=== PATIENT | male | born 1945 | race Caucasian/White ===

== ENCOUNTER 2022-07-21 14:07 | Outpatient (REF) | payer BC, SELFPAY ==
[2022-07-21 14:46] LABS: Hematocrit 41.2 % (42.0-52.0); Hemoglobin 13.7 g/dl (14.0-18.0); Mean Corpuscular HGB Conc 33.3 g/dl (31.0-36.0); Mean Corpuscular Hemoglobin 28.4 pg (27.0-33.0); Mean Corpuscular Volume 85.5 fL (80.0-98.0); Mean Platelet Volume 9.2 fL (9.4-12.4); Platelet Count 344 X10*3/uL (160-400); Red Blood Count 4.82 X10*6/uL (4.60-5.80); Red Cell Distribution Width 13.6 % (11.0-16.0); White Blood Count 7.5 X10*3/uL (4.8-10.8)
[2022-07-21 14:58] LABS: Appearance Urine Turbid; Color Urine Yellow; Glucose Urine UA Negative (Negative); Leukocyte Esterase Urine Negative (Negative); Nitrite Urine Negative (Negative); PH 6.5 (5.0-9.0); Urine Blood Negative (Negative); Urine Ketones Negative (Negative); Urine Protein Negative (Neg-Trace)
[2022-07-21 15:07] LABS: Alanine Aminotransferase 20 U/L (0-40); Albumin Level 4.5 g/dL (3.5-5.0); Alkaline Phosphatase 73 U/L (39-117); Anion Gap 14 (12-20); Aspartate Amino Transferase 19 U/L (5-37); Bilirubin Direct 0.3 mg/dL (0.0-0.5); Bilirubin Total 0.9 mg/dL (0.0-1.0); Blood Urea Nitrogen 16 mg/dL (9-16); Calcium 9.9 mg/dL (8.4-10.2); Carbon Dioxide 27 mmol/L (22-29); Chloride 103 mmol/L (96-108); Cholesterol 194 mg/dL; Estimated Glomerular Filt Rate > 60; Glucose Random 89 mg/dL (60-115); HDL Cholesterol 52 mg/dL; LDL Cholesterol Calculated 130 mg/dl; Potassium 4.5 mmol/L (3.3-5.1); Sodium 139 mmol/L (135-145); Total Protein 6.6 g/dL (6.5-8.0); Triglycerides 61 mg/dL
[2022-07-21 15:29] LABS: Prostate Specific Antigen Scr 2.75 ng/mL (<0.05-4.0); Thyroid Stimulating Hormone 1.14 uIU/mL (0.32-4.0)
== END 2022-07-21 14:08 | disposition home or self-care (01) ==
LOC: HO.LAB 14:07
PROVIDERS: PCP Internal Medicine; Visit Provider Internal Medicine
DX: I10 Essential (primary) hypertension (principal); Z12.5 Encounter for screening for malignant neoplasm of prostate
CPT/HCPCS: 36415; 80048; 80061; 80076; 81003; 84153; 84443; 85027

== ENCOUNTER 2023-04-13 14:18 | Outpatient (AMB) | payer BC, SELFPAY ==
--- NOTE | 2023-04-13 14:25 | A.OFFPC_ITS ---
Vital Signs 04/13/23 14:27 Height 5 ft 10 in Weight 165 lb BMI 23.7 BP 130/80 Blood Pressure Location Lt brachial Position Sitting Pulse 68 Pulse Source Pulse Oximeter Pulse Oximetry (%) 95 Oxygen Delivery Method Room Air Intake Visit Reasons: 6mth f/u Intake Note: Patient is here to follow up on HTN. 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 Cadence Specialists: Not Required per policy Accompanied by: Self / Same As Patient Allergies No Known Allergies [NO KNOWN ALLERGIES] Allergy (Intermediate, Verified 04/13/23 15:15) UNKNOWN Medication List - Last Reconciled 04/13/23 by Kiran Lugo MD No Known Home Meds Tobacco use date assessed: 04/13/23 Fall risk assessment: No Falls in past year Last assessed Fall Risk: 04/13/23 Dental Screening Dental Screen Date: 04/13/23 Did you have a dental visit in the last 12 months?: Yes Did you have a dental problem in the last 6 months where you did not have access to dental care?: No Was dental information given to patient?: Patient has dentist HPI 6mth f/u HPI Details 77-year-old male presents to the office to discuss his chronic medical conditions. Patient would like to get blood work done. Currently he is on no medications. Able to function and do all activities of daily living. Patient drives at night. He is an avid biker and is able to bike the usual distances. [facility] Medical History Benign essential HTN Surgical History History of colonoscopy History of subdural hematoma Family History Father No problems noted. Mother No problems noted. Social History Housing: House Alcohol intake: current Alcohol intake frequency: a few times a week Alcohol type: wine Patient Tobacco Use Status: Never used Tobacco e-Cigarette/Vaping Use: Never Used Second Hand Smoke Exposure: No service: Yes Current occupational status: retired Cognitive needs: No Hearing needs: No Vision needs: Yes (Glasses) Questionnaire PHQ-9 Over the last 2 weeks, how often have you been bothered by any of the following problems? 1. Little interest or pleasure in doing things: not at all 2. Feeling down, depressed, or hopeless: not at all 3. Trouble falling or staying asleep, or sleeping too much: not at all 4. Feeling tired or having little energy: not at all 5. Poor appetite or overeating: not at all 6. Feeling bad about yourself - or that you are a failure or have let yourself or your family down: not at all 7. Trouble concentrating on things, such as reading the newspaper or watching television: not at all 8. Moving or speaking so slowly that other people could have noticed. Or the opposite - being so fidgety or restless that you have been moving around a lot more than usual: not at all 9. Thoughts that you would be better off or of hurting yourself in some way: not at all Total score: 0 Depression Screening Interpretation: Negative Source: Developed by Drs. Fredy Shi, Arlette Corbin, Carlitos Howard and colleagues, with an educational emery from [employer]. Thrive Questionnaire Date Thrive assessed: 04/13/23 I am a: Patient What is your living situation today?: I have a steady place to live Within the past 12 months, did the food you bought not last and you didn't have the money to get more?: Never true Within the past 12 months, did you worry whether your food would run out before you got money to buy more?: Never true Do you have trouble paying for medicines?: No Do you have trouble getting transportation to medical appointments?: No Do you have trouble paying your heating and electricity bill?: No Do you have trouble taking care of your child, family member or friend?: No Do you have trouble with day-to-day activities such as bathing, preparing meals, shopping, managing finances, etc.?: No Are you currently unemployed and looking for a job?: No Are you interested in more education?: No Currently or been in a relationship where the following occur: no concerns reported AUDIT C Alcohol Use Questionnaire (AUDIT-C) 1. How often do you have a drink containing alcohol?: 2-4 times a month 2. How many drinks containing alcohol do you have on a typical day when you are drinking?: 1 or 2 Total Score: 2 GINETTE-7 AMB Questionnaire GINETTE-7 Date GINETTE - 7 assessed: 04/13/23 Feeling nervous, anxious, or on edge: 0 = Not at all Not being able to stop or control worryin = Not at all Worrying too much about different things: 0 = Not at all Trouble relaxin = Not at all Being so restless that it is hard to sit still: 0 = Not at all Becoming easily annoyed or irritable: 0 = Not at all Feeling afraid as if something awful might happen: 0 = Not at all Total GINETTE-7 score (0-4 normal; 5-9 mild; 10-14 moderate; 15-21 severe): 0 Source: Developed by Drs. Fredy Shi, Arlette Corbin, Carlitos Howard and colleagues, with an educational emery from [employer]. Physical exam (Primary Care) Vital Signs: Last Vital Signs Pulse 68 04/13/23 14:27 BP 130/80 04/13/23 14:27 Pulse Ox 95 04/13/23 14:27 Oxygen Delivery Method Room Air 04/13/23 14:27 Care Plan Goal for BP management: Blood pressure is in range. No medications necessary. BMI result Body Mass Index 23.7 Tobacco/Smoking Status: Tobacco use Status Tobacco use date assessed 04/13/23 04/13/23 14:30 Patient Tobacco Use Status Never used Tobacco 04/13/23 14:30 e-Cigarette/Vaping Use Never Used 04/13/23 14:30 PHQ-9: PHQ-9 Score PHQ-9: Total score 0 04/13/23 14:30 Depression Screening Interpretation: Negative Thrive Assessment: Date of Thrive Assessment Date Thrive assessed 04/13/23 04/13/23 14:30 Currently or been in a relationship where the following occur: no concerns reported Const General: cooperative, healthy appearing and comfortable HENMT Head: Yes normal to inspection and Yes atraumatic Eyes General: appearance normal, both eyes and all related structures Neck Neck: Yes normal visual inspection and Yes full ROM Chest Chest palpation & inspection: normal inspection of the chest Resp Effort & Inspection: normal respiratory effort Auscultation: clear to auscultation bilaterally Cardio Jugular venous distension: no JVD Palpation: normal PMI Rate: regular rate Heart sounds: S1 normal heart sound present and S2 normal heart sound present GI Palpation (GI): Soft to palpation and No hepatosplenomegaly present Extrem General: Yes normal to inspection and Yes full ROM Assessment and Plan Assessment & Plan (1) Benign essential HTN: Code(s): I10 - Essential (primary) hypertension Plan: Blood work has been ordered. Counseling on the importance of diet and exercise done Orders: Orders Basic Metabolic Panel Today I10 - Essential (primary) hypertension Lipid Panel Today I10 - Essential (primary) hypertension Liver Panel Today I10 - Essential (primary) hypertension Thyroid Stimulating Hormone Today I10 - Essential (primary) hypertension Complete Blood Count no Diff Today I10 - Essential (primary) hypertension UA and rflx microscopic Today I10 - Essential (primary) hypertension Coding Level of Care Code Est Pt Level 4 (01407) Diagnoses Benign essential HTN I10
[2023-04-13 14:27] VITALS: BP 130/80; PULSE 68; O2SAT 95; BMI 23.7
== END 2023-04-13 15:18 | disposition home or self-care (01) ==
PROVIDERS: PCP Internal Medicine; Visit Provider Internal Medicine
DX: I10 Essential (primary) hypertension (principal)
CPT/HCPCS: 99214

== ENCOUNTER 2023-04-13 15:21 | Outpatient (REF) | payer BC, SELFPAY ==
[2023-04-13 18:21] LABS: Hematocrit 41.7 % (42.0-52.0); Hemoglobin 13.7 g/dl (14.0-18.0); Mean Corpuscular HGB Conc 32.9 g/dl (31.0-36.0); Mean Corpuscular Hemoglobin 28.2 pg (27.0-33.0); Mean Platelet Volume 9.7 fL (9.4-12.4); Platelet Count 311 X10*3/uL (160-400); Red Blood Count 4.85 X10*6/uL (4.60-5.80); Red Cell Distribution Width 13.4 % (11.0-16.0); White Blood Count 5.2 X10*3/uL (4.8-10.8)
[2023-04-13 18:43] LABS: Alanine Aminotransferase 17 U/L (0-40); Albumin Level 4.4 g/dL (3.5-5.0); Alkaline Phosphatase 61 U/L (39-117); Anion Gap 11 (12-20); Aspartate Amino Transferase 17 U/L (5-37); Bilirubin Direct 0.2 mg/dL (0.0-0.5); Bilirubin Total 0.9 mg/dL (0.0-1.0); Blood Urea Nitrogen 14 mg/dL (9-16); Calcium 9.4 mg/dL (8.4-10.2); Carbon Dioxide 26 mmol/L (22-29); Chloride 106 mmol/L (96-108); Cholesterol 222 mg/dL; Estimated Glomerular Filt Rate > 60; Glucose Random 98 mg/dL (60-115); HDL Cholesterol 45 mg/dL; LDL Cholesterol Calculated 163 mg/dl; Potassium 4.4 mmol/L (3.3-5.1); Sodium 139 mmol/L (135-145); Total Protein 6.8 g/dL (6.5-8.0); Triglycerides 73 mg/dL
[2023-04-13 18:58] LABS: Thyroid Stimulating Hormone 1.28 uIU/mL (0.32-4.0)
[2023-04-13 19:03] LABS: Appearance Urine Clear; Color Urine Yellow; Glucose Urine UA Negative (Negative); Leukocyte Esterase Urine Negative (Negative); Nitrite Urine Negative (Negative); Urine Blood Negative (Negative); Urine Ketones Negative (Negative); Urine Protein Negative (Neg-Trace)
== END 2023-04-13 15:22 | disposition home or self-care (01) ==
LOC: HO.LAB 15:21
PROVIDERS: PCP Internal Medicine; Visit Provider Internal Medicine
DX: I10 Essential (primary) hypertension (principal)
CPT/HCPCS: 36415; 80048; 80061; 80076; 81003; 84443; 85027

== ENCOUNTER 2023-05-25 13:44 | Emergency (ER) | payer BC, SELFPAY ==
--- NOTE | ~2023-05-25 | XR_ITS ---
EXAMINATION: XR CHEST CLINICAL INFORMATION: Chest pain. COMPARISON: 02/11/2020 chest radiograph. TECHNIQUE: 2 views of the chest were obtained. FINDINGS: No significant abnormality is noted involving the heart, lungs, mediastinum, bony thorax or soft tissues. XR/XR chest 2V IMPRESSION: Unremarkable examination.
[2023-05-25 13:47] VITALS: BP 171/69; PULSE 52; RESP 18; TEMP 36.6; O2SAT 98; BMI 24.5
--- NOTE | 2023-05-25 13:48 | ECG_ITS ---
Test Reason : PAIN Blood Pressure : / mmHG Vent. Rate : 087 BPM Atrial Rate : 087 BPM P-R Int : 144 ms QRS Dur : 062 ms QT Int : 350 ms P-R-T Axes : 028 061 077 degrees QTc Int : 421 ms Poor data quality, interpretation may be adversely affected Sinus rhythm with Premature supraventricular complexes Nonspecific ST and T wave abnormality Abnormal ECG No previous ECGs available Referred By: Jose Valles Electronically Signed By:DUDLEY BARKSDALE
--- NOTE | 2023-05-25 13:48 | ED_ITS ---
HPI - General Adult General Chief complaint: Upper Respiratory Symptoms Stated complaint: congestion chest pain Time Seen by Provider: 05/25/23 15:24 Source: patient, RN notes reviewed and old records reviewed Mode of arrival: ambulatory Limitations: no limitations History of Present Illness HPI narrative: 77-year-old male presents for evaluation of cough, congestion, sore throat. His symptoms started about 48 hours ago. Denies any known sick contacts. Denies any shortness of breath. He does not some mild chest discomfort with coughing Allergies he is vaccinated for COVID-19 Related Data Home Medications Medication Instructions Recorded Confirmed No Known Home Meds 09/11/20 04/13/23 Allergies Allergy/AdvReac Type Severity Reaction Status Date / Time No Known Allergies Allergy Intermediate UNKNOWN Verified 05/25/23 13:52 [NO KNOWN ALLERGIES] Review of Systems Constitutional: Constitutional: Reports chills, Reports fever(s), Reports headache(s) and Reports malaise ENT: Reports headache(s) and Reports sore throat Cardiovascular: Cardiovascular: Reports chest pain Respiratory: Respiratory: Denies chest congestion and Reports cough Gastrointestinal: Gastrointestinal: Denies abdominal pain, Denies nausea and Denies vomiting Musculoskeletal: Musculoskeletal: Denies back pain Neurologic: Reports headache(s) PMFSH Past Medical History Medical History Benign essential HTN Surgical History History of colonoscopy History of subdural hematoma Family History Family History Father No problems noted. Mother No problems noted. Social History Social History Housing: House Alcohol intake: current Alcohol intake frequency: a few times a week Alcohol type: wine Patient Tobacco Use Status: Never used Tobacco e-Cigarette/Vaping Use: Never Used Second Hand Smoke Exposure: No service: Yes Current occupational status: retired Cognitive needs: No Hearing needs: No Vision needs: Yes (Glasses) Physical Exam ED Vital Signs: Vital Signs - 24 hr 05/25/23 13:47 Temperature 98 F Pulse Rate 52 Respiratory Rate 18 Blood Pressure 171/69 H Pulse Oximetry 98 Oxygen Delivery Method Room Air BMI result Body Mass Index 24.5 Const General: healthy appearing, comfortable, no acute distress, alert and awake Nutritional Appearance: well nourished Orientation/consciousness: patient oriented x3 HENMT Head: Yes normocephalic and Yes atraumatic Eyes Eyelids: Yes eyelids normal Conjunctivae: conjunctivae normal Sclerae: sclerae normal Corneas: corneas normal Pupils: Equal, round and reactive pupils present EOM: EOMs intact bilaterally Neck Neck: Yes full ROM Resp Effort & Inspection: normal respiratory effort, able to speak in complete sentences, no audible wheezes and not labored Auscultation: clear to auscultation bilaterally Cardio Rate: regular rate Rhythm: regular rhythm Skin General skin exam: no rashes or lesions noted and elasticity normal Neuro General: patient oriented x3 Cranial nerves: Yes Equal, round and reactive pupils present and Yes Bilaterally intact EOM present Cognition (Neuro): normal cognition Extrem Other: Moving all extremities well without any obvious deformities Course Course Course Narrative: RME- 77-year-old male presents for evaluation of cough, congestion, some chest tightness. Plan for COVID testing, chest x-ray call EKG. Low suspicion for cardiac disease given the upper respiratory symptoms. Medical Decision Making Medical Decision Making [facility] Narrative: 37-year-old male presents for evaluation of upper respiratory symptoms. His which has resulted positive. He does not meet criteria for Paxlovid treatment. Symptomatic care only. Chest x-ray was clear, EKG does not show any acute ischemia Differential Diagnosis Differential Diagnoses: The differential diagnosis associated with the prese ntation includes Viral syndrome Upper respiratory infection COVID-19 Pneumonia Bronchitis ACS less likely Lab Data Labs: Lab Results 05/25/23 Range/Units 14:18 COVID-19 (OLGA) Positive A (Negative) COVID-19 Clin Com See Note Independent Interpretation I performed an independent interpretation of an: EKG (Sinus rhythm with a rate of 87 beats per minute. No ectopy) and Plain X-Ray (Clear chest x-ray) Radiology Impression Discussion of test interpretation with radiology: I have reviewed the radiologist's reading. (Unremarkable examination of the chest x-ray) Discharge Plan Discharge Clinical Impression: COVID-19 Patient Disposition: Home, Self-Care Instructions: COVID-19 (Coronavirus Disease 2019) (ED) Additional Instructions: You tested positive for COVID-19 Your chest x-ray was clear Your EKG did not show any concerning abnormalities Use ibuprofen/Tylenol for headaches, fevers You may use [id number] cough medicine Return for new or worsening symptoms, especially if you are having trouble breathing Follow-up with your primary doctor Prescriptions: No Action No Known Home Meds
[2023-05-25 14:38] LABS: COVID-19 Test Positive (Negative); IDNOW Serial# BCCEAD1C
== END 2023-05-25 15:37 | disposition home or self-care (01) ==
LOC: HO.ED 15:31
PROVIDERS: Physician Assistant; Emergency Provider Emergency Medicine; PCP Internal Medicine
DX: U07.1 COVID-19 (principal); R07.89 Other chest pain
CPT/HCPCS: 71046; 87635; 93005; 99283

== ENCOUNTER 2023-07-27 12:03 | Outpatient (AMB) | payer BC, SELFPAY ==
--- NOTE | 2023-07-27 12:05 | MHC.PC.OV ---
Vital Signs 07/27/23 12:06 Height 5 ft 8 in Weight 164 lb BMI 24.9 BP 132/72 Blood Pressure Location Lt brachial Position Sitting Pulse 44 L Pulse Source Pulse Oximeter Pulse Oximetry (%) 95 Oxygen Delivery Method Room Air Intake Visit Reasons: Annual Exam Intake Note: Patient is here today for a physical. 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: Not Required per policy Accompanied by: Self / Same As Patient Allergies No Known Allergies [NO KNOWN ALLERGIES] Allergy (Intermediate, Verified 07/27/23 12:31) UNKNOWN Medication List - Last Reconciled 07/27/23 by Kiran Lugo MD No Known Home Meds Tobacco use date assessed: 07/27/23 Fall risk assessment: No Falls in past year Last assessed Fall Risk: 07/27/23 Dental Screening Dental Screen Date: 07/27/23 Did you have a dental visit in the last 12 months?: Yes Did you have a dental problem in the last 6 months where you did not have access to dental care?: No Was dental information given to patient?: Patient has dentist HPI Annual Exam HPI Details 77-year-old male presents to the office requesting an annual physical. He is on no medications.. Last office visit, his LDL cholesterol was elevated and he was declining to take statins. Continues to decline the same. [facility] Medical History (Updated 07/27/23 @ 12:43 by Kiran Lugo MD) Benign essential HTN Surgical History History of colonoscopy History of subdural hematoma Family History Father No problems noted. Mother No problems noted. Social History Housing: House Alcohol intake: current Alcohol intake frequency: a few times a week Alcohol type: wine Patient Tobacco Use Status: Never used Tobacco e-Cigarette/Vaping Use: Never Used Second Hand Smoke Exposure: No service: Yes Current occupational status: retired Cognitive needs: No Hearing needs: No Vision needs: Yes (Glasses) Questionnaire Thrive Questionnaire Date Thrive assessed: 04/13/23 GINETTE-7 AMB Questionnaire GINETTE-7 Date GINETTE - 7 assessed: 04/13/23 Source: Developed by Drs. Fredy Shi, Arlette Corbin, Carlitos Howard and colleagues, with an educational emery from [employer]. Physical exam (Primary Care) Vital Signs: Last Vital Signs Pulse 44 L 07/27/23 12:06 BP 132/72 07/27/23 12:06 Pulse Ox 95 07/27/23 12:06 Oxygen Delivery Method Room Air 07/27/23 12:06 Care Plan Goal for BP management: Blood pressure is in range. Currently he is on no medications. BMI result Body Mass Index 24.9 Tobacco/Smoking Status: Tobacco use Status Tobacco use date assessed 07/27/23 07/27/23 12:08 Patient Tobacco Use Status Never used Tobacco 07/27/23 12:08 e-Cigarette/Vaping Use Never Used 07/27/23 12:08 Thrive Assessment: Date of Thrive Assessment Date Thrive assessed 04/13/23 07/27/23 12:08 Const General: cooperative and healthy appearing Nutritional Appearance: well nourished Orientation/consciousness: patient oriented x3 Limitations: no limitations HENMT Head: Yes normal to inspection Eyes General: appearance normal, both eyes and all related structures Neck Neck: Yes normal visual inspection Chest Chest palpation & inspection: normal palpation of entire chest wall Resp Effort & Inspection: normal respiratory effort Neuro General: patient oriented x3 Office Procedures Flu Questionnaire Does the patient have a severe egg allergy?: No Does the patient have severe life threatening allergies?: No Does the patient have a fever or illness today?: No Has the patient ever had Guillain-[place] Syndrome?: No Has the patient ever had any past reaction to a flu shot?: No Immunizations flu vacc [id number] 6mos up(PF) 60 mcg(15 mcgx4)/0.5 mL IM syringe Performing Provider: Kiran Lugo MD [facility] Administered by: Tavon Lee on 07/27/23 12:33 Dose Route Admin Location Dispensed Lot Number Expiration Date NDC Director Of Patient Safety 0.5 mL IM Left Deltoid 0.5 mL [id number] 03/31/24 [id number] [employer] VIS Given Date VIS Provided VIS Publication Date 07/27/23 Single Vaccine 21 Eligibility Eligibility Date Funding Source Not VFC Eligible 07/27/23 Private Assessment and Plan Assessment & Plan (1) Annual physical exam: Code(s): Z00.00 - Encounter for general adult medical examination without abnormal findings (2) Benign essential HTN: Code(s): I10 - Essential (primary) hypertension Plan: Blood pressure is in range. Currently he is on no medications. (3) Hypercholesterolemia: Code(s): E78.00 - Pure hypercholesterolemia, unspecified Plan: LDL is elevated. Patient still declines to take statins. He wants to get blood work checked in 3 months and will take statins if the numbers continue to be elevated. Orders: Orders Influenza [id number] Immunization Today Z23 - Encounter for immunization Coding Level of Care Code Est Pt Prev Care >65y(34110) Diagnoses Annual physical exam Z00.00 Benign essential HTN I10 Hypercholesterolemia E78.00
[2023-07-27 12:06] VITALS: BP 132/72; PULSE 44; O2SAT 95; BMI 24.9
== END 2023-07-27 12:35 | disposition home or self-care (01) ==
PROVIDERS: Visit Provider Internal Medicine
DX: Z00.00 Encounter for general adult medical examination without abnormal findings (principal); I10 Essential (primary) hypertension; E78.00 Pure hypercholesterolemia, unspecified; Z23 Encounter for immunization
CPT/HCPCS: 90471; 90686; 99397

== ENCOUNTER 2024-08-26 14:02 | Outpatient (AMB) | payer BC, SELFPAY ==
--- NOTE | 2024-08-26 14:03 | A.OFFPC_ITS ---
Vital Signs 08/26/24 14:05 Height 5 ft 8 in Weight 165 lb 4 oz BMI 25.1 BP 120/68 Blood Pressure Location Lt brachial Position Sitting Pulse 42 L Pulse Source Pulse Oximeter Pulse Oximetry (%) 100 Oxygen Delivery Method Room Air Intake Visit Reasons: ReschedulePE Intake Note: Patient is here today for a physical. Pt decline flu shot today. Outside Sales Representative Insurance Required: No Transportation Services Representative: Not Required per policy Accompanied by: Self / Same As Patient Allergies No Known Allergies [NO KNOWN ALLERGIES] Allergy (Intermediate, Verified 08/26/24 14:04) UNKNOWN Tobacco use date assessed: 08/26/24 Fall risk assessment: No Falls in past year Last assessed Fall Risk: 08/26/24 Dental Screening Dental Screen Date: 08/26/24 Did you have a dental visit in the last 12 months?: Yes Did you have a dental problem in the last 6 months where you did not have access to dental care?: No Was dental information given to patient?: Patient has dentist [facility] Medical History Benign essential HTN Surgical History History of colonoscopy History of subdural hematoma Family History Father No problems noted. Mother No problems noted. Social History Housing: House Alcohol intake: current Alcohol intake frequency: a few times a week Alcohol type: wine Patient Tobacco Use Status: Never used Tobacco e-Cigarette/Vaping Use: Never Used Second Hand Smoke Exposure: No service: Yes Current occupational status: retired Cognitive needs: No Hearing needs: No Vision needs: Yes (Glasses) Questionnaire PHQ-9 Over the last 2 weeks, how often have you been bothered by any of the following problems? 1. Little interest or pleasure in doing things: not at all 2. Feeling down, depressed, or hopeless: not at all 3. Trouble falling or staying asleep, or sleeping too much: not at all 4. Feeling tired or having little energy: not at all 5. Poor appetite or overeating: not at all 6. Feeling bad about yourself - or that you are a failure or have let yourself or your family down: not at all 7. Trouble concentrating on things, such as reading the newspaper or watching television: not at all 8. Moving or speaking so slowly that other people could have noticed. Or the opposite - being so fidgety or restless that you have been moving around a lot more than usual: not at all 9. Thoughts that you would be better off or of hurting yourself in some way: not at all Total score: 0 Depression Screening Interpretation: Negative Depression Screening Done: Yes Source: Developed by Drs. Fredy Shi, Arlette Corbin, Carlitos Howard and colleagues, with an educational emery from [employer]. Thrive Questionnaire Date Thrive assessed: 08/26/24 I am a: Patient What is your living situation today?: I have a steady place to live Within the past 12 months, did the food you bought not last and you didn't have the money to get more?: Never true Within the past 12 months, did you worry whether your food would run out before you got money to buy more?: Never true Do you have trouble paying for medicines?: No Do you have trouble getting transportation to medical appointments?: No Do you have trouble paying your heating and electricity bill?: No Do you have trouble taking care of your child, family member or friend?: No Do you have trouble with day-to-day activities such as bathing, preparing meals, shopping, managing finances, etc.?: No Are you currently unemployed and looking for a job?: No Are you interested in more education?: No Currently or been in a relationship where the following occur: No concerns reported THRIVE Score: 0 AUDIT C Alcohol Use Questionnaire (AUDIT-C) 1. How often do you have a drink containing alcohol?: 2-4 times a month 2. How many drinks containing alcohol do you have on a typical day when you are drinking?: 1 or 2 Total Score: 2 GINETTE-7 AMB Questionnaire GINETTE-7 Date GINETTE - 7 assessed: 08/26/24 Feeling nervous, anxious, or on edge: 0 = Not at all Not being able to stop or control worryin = Not at all Worrying too much about different things: 0 = Not at all Trouble relaxin = Not at all Being so restless that it is hard to sit still: 0 = Not at all Becoming easily annoyed or irritable: 0 = Not at all Feeling afraid as if something awful might happen: 0 = Not at all Total GINETTE-7 score (0-4 normal; 5-9 mild; 10-14 moderate; 15-21 severe): 0 Source: Developed by Drs. Fredy Shi, Arlette Corbin, Carlitos Howard and colleagues, with an educational emery from [employer]. Physical exam (Primary Care) Vital Signs: Last Vital Signs Pulse 42 L 08/26/24 14:05 BP 120/68 08/26/24 14:05 Pulse Ox 100 08/26/24 14:05 Oxygen Delivery Method Room Air 08/26/24 14:05 BMI result Body Mass Index 25.1 Tobacco/Smoking Status: Tobacco use Status Tobacco use date assessed 08/26/24 08/26/24 14:09 Patient Tobacco Use Status Never used Tobacco 08/26/24 14:09 e-Cigarette/Vaping Use Never Used 08/26/24 14:09 PHQ-9: PHQ-9 Score PHQ-9: Total score 0 08/26/24 14:09 Depression Screening Interpretation: Negative Thrive Assessment: Date of Thrive Assessment Date Thrive assessed 08/26/24 08/26/24 14:09 Currently or been in a relationship where the following occur: No concerns reported Const General: cooperative and healthy appearing Nutritional Appearance: well nourished Orientation/consciousness: patient oriented x3 Limitations: no limitations HENMT Head: Yes normal to inspection Eyes General: appearance normal, both eyes and all related structures Neck Neck: Yes normal visual inspection Chest Chest palpation & inspection: normal palpation of entire chest wall Resp Effort & Inspection: normal respiratory effort Neuro General: patient oriented x3 Coding Level of Care Code Est Pt Prev Care >65y(69745) Diagnoses Annual physical exam Z00.00 Assessment & Plan Assessment & Plan (1) Annual physical exam: Code(s): Z00.00 - Encounter for general adult medical examination without abnormal findings Category: Medical Plan: BW ordered. Will call with results. Scribe Plan - Not visible on output: History of Present Illness The patient is a 78-year-old male presenting for a routine physical examination. During the previous examination, the patient's cholesterol levels were reported to be elevated. He recalls receiving this information through correspondence. No specific interventions or changes in treatment have been implemented since then, and he expressed a preference for non-pharmacological management, contingent upon the current cholesterol levels not indicating further elevation. Social History - Previous employment as a mail distribution clerk. - Performs daily activities independently, including walking a dog. - Engages in occasional reading. - Drives including at night. - Prefers not to receive a flu shot due to past negative reactions. - Drinks black coffee without any additives. Review of Systems - Genitourinary: Reports frequent urination. - General: Denies any significant health concerns. - Musculoskeletal: Denies any aches and pains. - Sleep: Reports sleeping well. Physical Exam Results Plan - Hypercholesterolemia: A repeat lipid panel will be ordered to assess current cholesterol levels. If levels remain elevated, the possibility of pharmacologic intervention will be reconsidered should lifestyle modifications fail to provide adequate control. - Frequent urination: Continue with current behavioral adjustments to manage symptoms effectively. Further evaluation or treatment will be considered based on symptom progression or change. Patient was informed and verbally consented to the use of an ambient scribe for clinic note documentation during this visit. Discussion Notes I discussed with the patient the importance of monitoring his cholesterol levels and the potential implications of untreated hypercholesterolemia. We explored his past preference for managing this condition solely with lifestyle modifications, acknowledging that pharmacologic treatment might eventually become necessary. The patient was agreeable to repeat fasting blood work. We also reviewed his symptom of frequent urination, affirming that his current natasha gement strategy is effective. Follow-up will focus on further evaluation if symptoms worsen or new symptoms arise. I reiterated understanding his past reaction to the flu vaccine and his decision against receiving it. Patient Instructions - Undergo fasting blood tests as ordered. - Continue current management for frequent urination by limiting fluid intake before bedtime. - Maintain lifestyle measures aimed at managing cholesterol levels, including dietary modifications. - Contact the clinic if new symptoms arise or existing symptoms change.
[2024-08-26 14:05] VITALS: BP 120/68; PULSE 42; O2SAT 100; BMI 25.1
== END 2024-08-26 14:19 | disposition home or self-care (01) ==
PROVIDERS: PCP Internal Medicine; Visit Provider Internal Medicine
DX: Z00.00 Encounter for general adult medical examination without abnormal findings (principal)

== ENCOUNTER 2024-08-26 14:02 | Outpatient (REF) | payer BC, SELFPAY ==
[2024-08-26 16:10] LABS: Hemoglobin 14.3 g/dl (14.0-18.0); Mean Corpuscular HGB Conc 32.5 g/dl (31.0-36.0); Mean Corpuscular Hemoglobin 27.5 pg (27.0-33.0); Mean Corpuscular Volume 84.6 fL (80.0-98.0); Mean Platelet Volume 9.4 fL (9.4-12.4); Platelet Count 352 X10*3/uL (160-400); Red Cell Distribution Width 13.7 % (11.0-16.0); White Blood Count 6.2 X10*3/uL (4.8-10.8)
[2024-08-26 16:38] LABS: Appearance Urine Clear; Color Urine Dark Yellow; Glucose Urine UA Negative (Negative); Leukocyte Esterase Urine Negative (Negative); Nitrite Urine Negative (Negative); PH 5.5 (5.0-9.0); Specific Gravity - Urine 1.025 (1.005-1.025); Urine Blood Negative (Negative); Urine Ketones Negative (Negative); Urine Protein Trace mg/dL (Neg-Trace)
[2024-08-26 16:52] LABS: Alanine Aminotransferase 18 U/L (0-40); Albumin Level 4.3 g/dL (3.5-5.0); Alkaline Phosphatase 92 U/L (39-117); Anion Gap 10 (12-20); Aspartate Amino Transferase 22 U/L (5-37); Bilirubin Direct 0.2 mg/dL (0.0-0.5); Bilirubin Total 0.7 mg/dL (0.0-1.0); Blood Urea Nitrogen 16 mg/dL (9-16); Calcium 8.9 mg/dL (8.4-10.2); Carbon Dioxide 26 mmol/L (22-29); Chloride 106 mmol/L (96-108); Cholesterol 238 mg/dL (<200); Estimated Glomerular Filt Rate > 60; Glucose Random 112 mg/dL (60-115); HDL Cholesterol 43 mg/dL (>40); LDL Cholesterol Calculated 180 mg/dL (<100); Potassium 4.2 mmol/L (3.3-5.1); Sodium 138 mmol/L (135-145); Total Protein 6.8 g/dL (6.5-8.0); Triglycerides 79 mg/dL (<150)
[2024-08-26 16:59] LABS: Thyroid Stimulating Hormone 1.74 uIU/mL (0.32-4.0)
[2024-08-26 17:03] LABS: Prostate Specific Antigen Scr 33.17 ng/mL (<0.05-4.0)
== END 2024-08-26 14:03 | disposition home or self-care (01) ==
LOC: HO.LAB 14:02
PROVIDERS: PCP Internal Medicine; Visit Provider Internal Medicine
DX: Z00.00 Encounter for general adult medical examination without abnormal findings (principal); I10 Essential (primary) hypertension; Z12.5 Encounter for screening for malignant neoplasm of prostate
CPT/HCPCS: 36415; 80048; 80061; 80076; 81003; 84153; 84443; 85027

== ENCOUNTER 2024-10-03 11:09 | Outpatient (REF) | payer BC, SELFPAY ==
--- OUTSIDE RECORDS SUMMARY | 2024-10-03 12:57 | XMS_ITS | Continuity of Care Document ---
Author Organization [facility] ancer Care Address [address] [place] [id number] Care Team Providers Care Culinary Director Name Role Phone Nora RODRIGUEZ, Heather Whitt Primary Care Physician [phone] [facility]counter [facility] [id number] Date(s): 07/11/23 - 09/07/24 [facility] [address] [place] [id number] Discharge Disposition: A-D/C Home Attending Physician: Khalif Crane MD Admitting Physician: Khalif Crane MD Referring Physician: Heather Melendez MD Encounter Type: Disch Recurring OP Allergies, Adverse Reactions, Alerts No Known Medication Allergies Vital Signs Most recent to oldest [Reference Range]: 1 Height 175 cm (07/08/24 1:19 PM) Oxygen Saturation [94-100 %] 97 % (07/08/24 1:19 PM) Pulse Rate [55-90 bpm] 73 bpm (07/08/24 1:19 PM) Blood Pressure [90-138/55-84 mm Hg] 167/ 95mm Hg *H* (07/08/24 1:19 PM) Temperature [96.8-100.4 DegF] 97 DegF (07/08/24 1:19 PM) Mode of Delivery (Oxygen) Room air (07/08/24 1:19 PM) Blood pressure sites Arm, right (07/08/24 1:19 PM) Temperature Route Oral (07/08/24 1:19 PM) Dry Weight 75.5 kg (07/08/24 1:19 PM) Weight Obtained Via Standing scale (07/08/24 1:19 PM) Dry Weight Obtained Via Standing scale (07/08/24 1:19 PM) Social History Social History Type Response Smoking Status Former smoker entered on: 08/11/16 Sex Sex Representation Male (finding) Patient Care team information Care Team Personnel Name: Nora RODRIGUEZ, Heather Whitt Position: Reference Physician Member Role: PCP Address: [address], [address] [place] [address]- Telecom: Name: Khalif Crane MD Position: [facility] Physician - Oncology Med Service: Hematology & Oncology Member Role: Admitting Physician Address: [address] [place] [address] [place] [address]- Telecom: Care Team Related Persons Name: VICENTE VICENTE Insurance Providers Guarantor name: ELVIS VICENTE Health Plan Information #: 1 Payer: [employer] Member Number: [id number] Policy Number: NA Group Number: [id number] Health Plan Information #: 2 Payer: [employer] Member Number: [id number] Policy Number: NA Group Number: NA
[2024-10-03 13:48] LABS: PSA,Total (Free>4and<10) 53.24 ng/mL (0.00-4.00)
== END 2024-10-03 11:10 | disposition home or self-care (01) ==
LOC: HO.LAB 11:09
PROVIDERS: PCP Internal Medicine; Visit Provider Urology
DX: R97.20 Elevated prostate specific antigen [PSA] (principal); Z12.5 Encounter for screening for malignant neoplasm of prostate
CPT/HCPCS: 36415; 81003; 84153

== ENCOUNTER 2024-10-03 11:09 | Outpatient (AMB) | payer BC, SELFPAY ==
--- NOTE | 2024-10-02 20:12 | A.OFFVIS_ITS ---
Intake Visit Reasons: elevated PSA Intake Note: Patient is present for ELEVATED PSA Urology Medication:NONE Antibiotic Allergy:NONE Blood Thinner:NONE Farmworker Diversified Crops Required: No Allergies No Known Allergies [NO KNOWN ALLERGIES] Allergy (Intermediate, Verified 10/03/24 11:16) UNKNOWN Medication List - Last Reconciled 10/03/24 by Erickson Mcarthur MD atorvastatin 10 mg PO BEDTIME hyoscyamine sulfate 0.125 mg PO BID-QID PRN HPI Comments Details: Henri is a 79 year old male who presents for elevated PSA. I have discussed that elevated PSA may indicate changes in the prostate including benign enlargement, cancer and an inflammatory condition. I have discussed doing a biopsy has risks and that management in early detection of prostate cancer may include active surveillance. 08/26/24--PSA - 33.17. Reviewed previous PSA's --05/01/20--PSA 0.88, 07/21/22--2.75. Henri denies irritative voiding symptoms. Prostate exam-irregular; Urinalysis is negative. Discussed repeat PSA today. Discussed further evaluation with biopsy pending repeat PSA. [facility] Medical History Benign essential HTN Surgical History History of colonoscopy History of subdural hematoma Family History Father No problems noted. Mother No problems noted. Social History Housing: House Alcohol intake: current Alcohol intake frequency: a few times a week Alcohol type: wine Patient Tobacco Use Status: Never used Tobacco e-Cigarette/Vaping Use: Never Used Second Hand Smoke Exposure: No service: Yes Current occupational status: retired Cognitive needs: No Hearing needs: No Vision needs: Yes (Glasses) Review of Systems Const All systems reviewed & are unremarkable except as noted in HPI and below Reports no additional complaints Eyes Reports no additional complaints ENT Reports no additional complaints Card Reports no additional complaints Resp Reports no additional complaints GI Reports no additional complaints Reports as per HPI Musc Reports no additional complaints Skin/Breast Reports system reviewed and no additional complaints, except as documented Neuro Reports no additional complaints Psych Reports no additional complaints Endo Reports no additional complaints Miquel/Lymph Reports no additional complaints Aller/Immun Reports no additional complaints Physical Exam Const General: healthy appearing, no acute distress and well developed Orientation/consciousness: patient oriented x3 HEENT Head: Yes normocephalic Eyes Conjunctivae: conjunctivae normal Neck Neck: Yes normal visual inspection Chest Chest palpation & inspection: normal inspection of the chest Resp Effort & Inspection: normal respiratory effort Cardio Rate: regular rate GI Inspection: Yes normal to inspection Palpation (GI): Soft to palpation Other: Prostate Exam: enlarged, irregular Neuro General: patient oriented x3 Extrem General: No pedal edema Psych Appearance: grossly normal Affect: normal affect Results AMB Urinalysis, Automated UA Leukoctes 0 Deven/uL Last Edit by EMILEE Freeman on 10/03/24 11:30 UA Nitrite Negative Last Edit by EMILEE Freeman on 10/03/24 11:30 UA Urobilinogen 0.2 mg/dL Last Edit by EMILEE Freeman on 10/03/24 11:3 0 UA Protein 15 mg/dL Last Edit by Delma Trotter CCM on 10/03/24 11:30 UA pH 5.5 Last Edit by Delma Trotter CCM on 10/03/24 11:30 UA Blood 0 Robert/uL Last Edit by Delma Trotter CCM on 10/03/24 11:30 UA Specific [place] 1.025 Last Edit by EMILEE Freeman on 10/03/24 11: 30 UA Ketone Negative Last Edit by EMILEE Freeman on 10/03/24 11:30 UA Bilirubin 0 mg/dL Last Edit by Delma Trotter CCM on 10/03/24 11:30 UA Glucose 0 mg/dL Last Edit by Delma Trotter CCM on 10/03/24 11:30 Assessment & Plan Assessment & Plan (1) Elevated PSA: Code(s): R97.20 - Elevated prostate specific antigen [PSA] Category: Medical Plan Discussed repeat PSA today. Discussed further evaluation with biopsy pending repeat PSA. Orders: Orders AMB Urinalysis Automated Today Z13.9 - Encounter for screening, unspecified PSA,Total (Free>4and<10) Today R97.20 - Elevated prostate specific antigen [PSA] Patient Instructions: The patient had an opportunity to ask questions regarding treatment plan. The patient expressed understanding and agreement with the above treatment plan. The patient is aware they should contact our office by phone for worsening of their current condition or the appearance of new symptoms. Compliance is encouraged with any medications and followup testing that is ordered. It is a privilege to be allowed the opportunity to participate in the urologic care of your patient. If you have any questions or concerns regarding treatment for the above conditions please do not hesitate to contact me. The office telephone contact is [phone]. This note is constructed in part using voice recognition software. While every effort has been made to ensure accuracy chiropractic assistant errors may have been included. Yours sincerely, Erickson Mcarthur MD Coding Level of Care Code New Pt Level 4 (58948) Diagnoses Elevated PSA R97.20
== END 2024-10-03 11:46 | disposition home or self-care (01) ==
PROVIDERS: PCP Internal Medicine; Visit Provider Urology
DX: R97.20 Elevated prostate specific antigen [PSA] (principal); Z13.9 Encounter for screening, unspecified
CPT/HCPCS: 99204

== ENCOUNTER 2024-10-18 16:01 | Outpatient (AMB) | payer BC, SELFPAY ==
--- NOTE | 2024-10-18 11:33 | MHC.OFFVIS ---
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 10/03/24-53.24. Discussed prostate biopsy. Transrectal Ultrasound guided biopsy of the prostate. Discussed risks to include but not limited to pain, infection. Will schedule. 10/03/24--Henri is a 79 year old male who presents for elevated PSA. I have discussed that elevated PSA may indicate changes in the prostate including benign enlargement, cancer and an inflammatory condition. I have discussed doing a biopsy has risks and that management in early detection of prostate cancer may include active surveillance. 08/26/24--PSA - 33.17. Reviewed previous PSA's --05/01/20--PSA 0.88, 07/21/22--2.75. Henri denies irritative voiding symptoms. Prostate exam-irregular; Urinalysis is negative. Discussed repeat PSA today. Discussed further evaluation with biopsy pending repeat PSA. [facility] Medical History Benign essential HTN Surgical History History of colonoscopy History of subdural hematoma Family History Father No problems noted. Mother No problems noted. Social History Housing: House Alcohol intake: current Alcohol intake frequency: a few times a week Alcohol type: wine Patient Tobacco Use Status: Never used Tobacco e-Cigarette/Vaping Use: Never Used Second Hand Smoke Exposure: No service: Yes Current occupational status: retired Cognitive needs: No Hearing needs: No Vision needs: Yes (Glasses) Review of Systems Const All systems reviewed & are unremarkable except as noted in HPI and below Reports no additional complaints Eyes Reports no additional complaints ENT Reports no additional complaints Card Reports no additional complaints Resp Reports no additional complaints GI Reports no additional complaints Reports as per HPI Musc Reports no additional complaints Skin/Breast Reports system reviewed and no additional complaints, except as documented Neuro Reports no additional complaints Psych Reports no additional complaints Endo Reports no additional complaints Miquel/Lymph Reports no additional complaints Aller/Immun Reports no additional complaints Telehealth Telehealth Telehealth Platform: [employer] Location of provider rendering services: practice address Location of patient: address on file Patient Identification confirmed using: Name, : Yes Telehealth method: video Patient verbally consented to treatment: Yes Patient verbally consented to billing insurance company: Yes Patient informed of any privacy concerns related to visit: Yes Assessment & Plan Assessment & Plan (1) Elevated PSA: Code(s): R97.20 - Elevated prostate specific antigen [PSA] Category: Medical Plan Discussed further evaluation with prostate biopsy Medications: New ciprofloxacin HCl start cipro one day prior to prostate biopsy and continue until completion of tablets 500 mg PO BID 8 tabs 0RF prostate biopsy Patient Instructions: The patient had an opportunity to ask questions regarding treatment plan. The patient expressed understanding and agreement with the above treatment plan. The patient is aware they should contact our office by phone for worsening of their current condition or the appearance of new symptoms. Compliance is encouraged with any medications and followup testing that is ordered. It is a privilege to be allowed the opportunity to participate in the urologic care of your patient. If you have any questions or concerns regarding treatment for the above conditions please do not hesitate to contact me. The office telephone contact is [phone]. This note is constructed in part using voice recognition software. While every effort has been made to ensure accuracy cord maker errors may have been included. Yours sincerely, Erickson Mcarthur MD Coding Level of Care Code Tele Est Pt Level 4 (59935) Diagnoses Elevated PSA R97.20
== END 2024-10-18 16:23 | disposition home or self-care (01) ==
LOC: HO.HUSH 16:01
PROVIDERS: PCP Internal Medicine; Visit Provider Urology
DX: R97.20 Elevated prostate specific antigen [PSA] (principal)
CPT/HCPCS: 99214

== ENCOUNTER 2024-11-15 07:59 | Outpatient (REF) | payer BC, SELFPAY ==
--- NOTE | 2024-11-15 11:04 | P.OP_ITS ---
Operative Note Operative Note Date of Service: 11/15/24 Narrative: PreOperative Diagnosis:? ? Elevated PSA Post Operative Diagnosis:??Elevated PSA Procedure:?1. Transrectal ultrasound guided biopsy of the prostate 12 core 2. Transrectal ultrasound measurement of prostate 3. Transrectal ultrasound guided pudendal nerve block Surgeon:?Dr Erickson Mcarthur Anesthesia:? Local Indications for procedure: Elevated PSA, 10/03/24--53.24 ng/mL Procedure: Preoperative antibiotics confirmed. After informed consent was verified the patient was placed on the procedure table in left lateral position. Patient identity confirmed. Safety pause time-out performed. Digital rectal exam performed to dilate rectal sphincter, iodine mixed with lubricant jelly 30 cc placed per rectum. Ultrasound probe was placed per rectum. The prostate was visualized. Prostatic calcifications noted in the transitional zone. The prostate was measured width 4.62 cm, height 4.16 cm, length 4.81 cm with a volume of 48.4 mL. An ultrasound guided pudendal nerve block was performed using 10 cc of 1% lid ocaine. A 12 core biopsy was performed from the left base, left mid, left apex and right base, mid, apex 2 biopsies from each section. The ultrasound probe was removed and digital palpation of the prostate for 1-2 minutes for hemostasis was performed. The patient tolerated the procedure well. Complications: None
[2024-12-27] MEDS: Lidocaine HCl 1 % MPF 5 ML VIAL SUBCUT (13:49)
== END 2024-11-15 08:00 | disposition home or self-care (01) ==
LOC: HO.US 07:59
PROVIDERS: PCP Internal Medicine; Visit Provider Urology
DX: C61 Malignant neoplasm of prostate (principal)
CPT/HCPCS: 55700; 76942; 88305; J2003

== ENCOUNTER → 2024-11-15 07:59 | Outpatient (BNV) | payer BC, SELFPAY | PROVIDERS: PCP Internal Medicine; Visit Provider Urology | DX: R97.20 Elevated prostate specific antigen [PSA] (principal) | CPT/HCPCS: 55700; 76872; 76942 ==

== ENCOUNTER 2024-12-04 15:17 | Outpatient (AMB) | payer BC, SELFPAY ==
--- NOTE | 2024-12-04 13:01 | MHC.OFFVIS ---
Intake Visit Reasons: Prostate biopsy Intake Note: Patient is present for a prostate biopsy Urology Medication: None Antibiotic Allergies: None Blood Thinners: None Banquet Attendant Required: No Accompanied by: Self / Same As Patient Allergies No Known Allergies [NO KNOWN ALLERGIES] Allergy (Intermediate, Verified 12/04/24 15:22) UNKNOWN HPI Comments Details: 12/04/24-- History of Present Illness The patient is a 79-year-old male presenting for follow-up related to recent identification of prostate adenocarcinoma. This diagnosis resulted from a prostate biopsy conducted on November 15, 2024, which revealed a Brookline score of 10 (5+5), suggestive of an advanced prostate cancer/neoplasm. His PSA was notably elevated at 33.17 ng/mL in August 2024. The patient's oncological history includes previous radiation treatment for lymphoma over a decade ago, with the last follow-up pending prior to discharge from his radiation oncologist. Despite the prostate cancer diagnosis, there has been no significant symptomatology related directly to urinary disturbances or pain originating from the urogenital tract. Urinary Symptoms Review - No urinary symptoms or incontinence reported during this visit Results - Tests and Diagnostics: Prostate biopsy results showing adenocarcinoma with Marilin score 10 (5+5) - Labs: PSA level was 33.17 ng/mL as of August 26, 2024 Plan For the patient's high-grade prostate adenocarcinoma, I will proceed with initiating hormonal therapy to lower testosterone levels. This will involve monthly injections once approved by his insurance. A PET scan will be scheduled to identify any metastasis originating from the primary tumor location. Engagement with the patient's existing oncology team at [facility] is prudent, and all requisite medical records will be directed to Dr. Capellan for coordinated care. Concurrently, a prophylactic prescription for oral calcium and vitamin D is provided to counteract the side effects of hormonal therapy. I will review PSA levels and evaluate responses after the initiation of hormonal therapy. Patient was informed and verbally consented to the use of an ambient scribe for clinic note documentation during this visit. Discussion Notes During the visit, I explained the seriousness of the patient's adenocarcinoma with a Brookline score of 10 and the availability of hormone therapy as an effective initial treatment to limit disease progression. I detailed potential side effects, including bone density loss, and recommended calcium and vitamin D supplementation. I also discussed the importance of a PET scan for comprehensive staging and evaluation. The role of radiation in his prior lymphoma management was acknowledged, and I counseled continuation under his current oncologist, Dr. Capellan, considering the patient's upcoming discharge plan. I confirmed that all necessary medical documentation would be relayed to Dr. Capellan. We concluded with a consensus to reassess treatment after initial hormone therapy and imaging results. Patient Instructions - Begin taking calcium with vitamin D as recommended. - Schedule and complete PET scan as instructed. - Follow up for hormone therapy injection once approved by insurance. - Continue care coordination with Dr. Crane at [facility]. - Monitor any side effects of treatment and report them promptly. - Return for follow-up upon completion of initial hormonal therapy and PET scan. 10/18/24--FU repeat PSA. 10/03/24-53.24. Discussed prostate biopsy. Transrectal Ultrasound guided biopsy of the prostate. Discussed risks to include but not limited to pain, infection. Will schedule. 10/03/24--Henri is a 79 year old male who presents for elevated PSA. I have discussed that elevated PSA may indicate changes in the prostate including benign enlargement, cancer and an inflammatory condition. I have discussed doing a biopsy has risks and that management in early detection of prostate cancer may include active surveillance. 08/26/24--PSA - 33.17. Reviewed previous PSA's --05/01/20--PSA 0.88, 07/21/22--2.75. Henri denies irritative voiding symptoms. Prostate exam-irregular; Urinalysis is negative. Discussed repeat PSA today. Discussed further evaluation with biopsy pending repeat PSA. PFSH Medical History Benign essential HTN Surgical History History of colonoscopy History of subdural hematoma Family History Father No problems noted. Mother No problems noted. Social History Housing: House Alcohol intake: current Alcohol intake frequency: a few times a week Alcohol type: wine Patient Tobacco Use Status: Never used Tobacco e-Cigarette/Vaping Use: Never Used Second Hand Smoke Exposure: No service: Yes Current occupational status: retired Cognitive needs: No Hearing needs: No Vision needs: Yes (Glasses) Review of Systems Const All systems reviewed & are unremarkable except as noted in HPI and below Reports no additional complaints Eyes Reports no additional complaints ENT Reports no additional complaints Card Reports no additional complaints Resp Reports no additional complaints GI Reports no additional complaints Reports as per HPI Musc Reports no additional complaints Skin/Breast Reports system reviewed and no additional complaints, except as documented Neuro Reports no additional complaints Psych Reports no additional complaints Endo Reports no additional complaints Miquel/Lymph Reports no additional complaints Aller/Immun Reports no additional complaints Results AMB Urinalysis, Automated UA Leukoctes 0 Deven/uL Last Edit by Jayde Fine on 12/04/24 16:16 UA Nitrite Negative Last Edit by Jayde Fine on 12/04/24 16:16 UA Urobilinogen 3.5 mg/dL Last Edit by Jayde Fine on 12/04/24 16:16 UA Protein 1 mg/dL Last Edit by Jayde Fine on 12/04/24 16:16 UA pH 7.0 Last Edit by Jayde Fine on 12/04/24 16:16 UA Blood 0 Robert/uL Last Edit by Jayde Fine on 12/04/24 16:16 UA Specific [place] 1.010 Last Edit by Jayde Fine on 12/04/24 16:16 UA Ketone Negative Last Edit by Jayde Fine on 12/04/24 16:16 UA Bilirubin 0 mg/dL Last Edit by Jayde Fine on 12/04/24 16:16 UA Glucose 0 mg/dL Last Edit by Jayde Fine on 12/04/24 16:16 Results Reviewed Results Reviewed: Collected: 11/15/24 Location: [facility] Received: 11/15/24 Diagnosis A. Prostate, left base lateral, core biopsy: Prostatic adenocarcinoma, Marilin score 5+4=9 (Grade group 5), involving 6% of the length of the core. B. Prostate, left base medial, core biopsy: Benign prostatic tissue. C. Prostate, left mid lateral, core biopsy: Prostatic adenocarcinoma, Brookline score 5+4=9 (Grade group 5), involving 53% of the length of the core. D. Prostate, left mid medial, core biopsy: Prostatic adenocarcinoma, Brookline score 5+4=9 (Grade group 5), involving 8% of the length of the core. E. Prostate, left apex lateral, core biopsy: Benign prostatic tissue. F. Prostate, left apex medial, core biopsy: Benign prostatic tissue. G. Prostate, right base lateral, core biopsy: Prostatic adenocarcinoma, Marilin score 5+5=10 (Grade group 5), involving 75% of the length of the core with perineural invasion. H. Prostate, right base medial, core biopsy: Prostatic adenocarcinoma, Brookline score 5+5=10 (Grade group 5), involving 90% of the length of the core with perineural invasion. I. Prostate, right mid lateral, core biopsy: Prostatic adenocarcinoma, Marilin score 5+5=10 (Grade group 5), involving 95% of the length of the core with perineural invasion. J. Prostate, right mid medial, core biopsy: Prostatic adenocarcinoma, Marilin score 5+5=10 (Grade group 5), involving 85% of the length of the core with perineural invasion. K. Prostate, right apex lateral, core biopsy: Prostatic adenocarcinoma, Marilin score 5+5=10 (Grade group 5), involving 25% of the length of the core with perineural invasion and extraprostatic extension. L. Prostate, right apex medial, core biopsy: Prostatic adenocarcinoma, Brookline score 5+5=10 (Grade group 5), involving 20% of the length of the core. Data synopsis - Prostate needle biopsy Histologic type: Acinar adenocarcinoma Histologic grade: Marilin score: 5+4=9 (A, C,D); 5+5=10 (G-L) % of pattern 4: 60% (A); 25%(C,D) % of pattern 5: 40%(A); 75%(C,D); 100% (G-L) Grade group: 5 (A, C, D, G-L) Tumor quantitation: Number cores positive: 9 Total number of cores: 12 % of tissue involved: See above for details Periprostatic fat inv.: Present Seminal vesicle inv.: Not identified Perineural inv.: Present LVI: Not identified Patient: Henri Wilkins Age/Sex: 79/M MR#: [id number] Page 1 of 4 Surgical Pathology [id number] Clinical History Elevated PSA Microscopic Description A, C, D, G-L. Sections of the prostate needle cores demonstrates prostatic parenchyma variably involved by prostatic adenocarcinoma comprised of sheets, nests and cords of cells with scattered clear vacuoles and only vague attempt at luminal formation. These features are consistent with a Marilin pattern 5. Focal Brookline pattern 4 is identified as well. Extensive perineural invasion is identified. Extraprostatic extension is identified in the right apex lateral (part K). B, E, F. sections of the prostate needle cores demonstrates benign prostatic glands and stroma. There is no evidence of malignancy seen. Material Received A: Left base lateral B: Left base medial C: Left mid lateral D: Left mid medial E: Left apex lateral F: Left apex medial G: Right base lateral H: Right base medial I: Right mid lateral J: Right mid medial K: Right apex lateral L: Right apex medial Gross Description Received in 12 parts. A. Received in formalin labeled ?left base lateral? is a cylindrical portion of white soft tissue measuring 2.2 cm in length with a diameter of 0.025 cm which is entirely submitted for microscopic examination, 1 piece in cassette A. B. Received in formalin labeled ?left base medial? is a cylindrical portion of white soft tissue Assessment & Plan Assessment & Plan (1) Adenocarcinoma of prostate with Marilin score X: Code(s): C61 - Malignant neoplasm of prostate Category: Medical Orders: Orders PET CT fusion skull to thigh Today C61 - Malignant neoplasm of prostate AMB Urinalysis Automated Today Z13.9 - Encounter for screening, unspecified Coding Diagnoses Adenocarcinoma of prostate with Brookline score X C61
== END 2024-12-04 16:07 | disposition home or self-care (01) ==
PROVIDERS: PCP Internal Medicine; Visit Provider Urology
DX: Z13.9 Encounter for screening, unspecified (principal)

== ENCOUNTER → 2024-12-04 15:17 | Outpatient (BNVA) | payer BC, SELFPAY | PROVIDERS: PCP Internal Medicine; Visit Provider Urology | DX: C61 Malignant neoplasm of prostate (principal) | CPT/HCPCS: 81003 ==

== ENCOUNTER 2025-02-06 15:25 | Outpatient (AMB) | payer BC, SELFPAY ==
--- NOTE | 2025-02-06 15:46 | A.OFFVIS_ITS ---
Intake Visit Reasons: 8w/PET/PSA Intake Note: Patient is present for a 8 week follow up/PET/PSA Urology Medication: None Antibiotic Allergies: None Blood Thinners: None Security Incident Response Specialist Required: No Accompanied by: Self / Same As Patient Allergies No Known Allergies [NO KNOWN ALLERGIES] Allergy (Intermediate, Verified 02/06/25 15:49) UNKNOWN HPI Comments Details: 02/06/25-- 12/04/24--79-year-old male presenting for follow-up post prostate biopsy. The diagnosis prostate adenocarcinoma resulted from a prostate biopsy conducted on November 15, 2024, which revealed a Marilin score of 10 (5+5), suggestive of an advanced prostate cancer/neoplasm. His PSA was notably elevated at 33.17 ng/mL in August 2024. The patient's oncological history includes previous radiation treatment for lymphoma over a decade ago. Despite the prostate cancer diagnosis, there has been no significant symptomatology related directly to urinary disturbances or pain originating from the urogenital tract. Urinary Symptoms Review - No urinary symptoms or incontinence reported during this visit Results - Tests and Diagnostics: Prostate biopsy results showing adenocarcinoma with Marilin score 10 (5+5) - Labs: PSA level was 33.17 ng/mL as of August 26, 2024 10/18/24--FU repeat PSA. 10/03/24-53.24. Discussed prostate biopsy. Transrectal Ultrasound guided biopsy of the prostate. Discussed risks to include but not limited to pain, infection. Will schedule. 10/03/24--Henri is a 79 year old male who presents for elevated PSA. I have discussed that elevated PSA may indicate changes in the prostate including benign enlargement, cancer and an inflammatory condition. I have discussed doing a biopsy has risks and that management in early detection of prostate cancer may include active surveillance. 08/26/24--PSA - 33.17. Reviewed previous PSA's --05/01/20--PSA 0.88, 07/21/22--2.75. Henri denies irritative voiding symptoms. Prostate exam-irregular; Urinalysis is negative. Discussed repeat PSA today. Discussed further evaluation with biopsy pending repeat PSA. ON LICENSE OF [facility] Medical History Benign essential HTN Surgical History History of colonoscopy History of subdural hematoma Family History Father No problems noted. Mother No problems noted. Social History Housing: House Alcohol intake: current Alcohol intake frequency: a few times a week Alcohol type: wine Patient Tobacco Use Status: Never used Tobacco e-Cigarette/Vaping Use: Never Used Second Hand Smoke Exposure: No service: Yes Current occupational status: retired Cognitive needs: No Hearing needs: No Vision needs: Yes (Glasses) Results AMB Urinalysis, Automated UA Leukoctes 0 Deven/uL Last Edit by Jayde Fine on 02/06/25 16:53 UA Nitrite Negative Last Edit by Jayde Fine on 02/06/25 16:53 UA Urobilinogen 0.2 mg/dL Last Edit by Jayde Fine on 02/06/25 16:53 UA Protein 15 mg/dL Last Edit by Jayde Fine on 02/06/25 16:53 UA pH 6.0 Last Edit by Jayde Fine on 02/06/25 16:53 UA Blood 0 Robert/uL Last Edit by Jayde Fine on 02/06/25 16:53 UA Specific [place] 1.020 Last Edit by Jayde Fine on 02/06/25 16:53 UA Ketone Negative Last Edit by Jayde Fine on 02/06/25 16:53 UA Bilirubin 0 mg/dL Last Edit by Jayde Fine on 02/06/25 16:53 UA Glucose 0 mg/dL Last Edit by Jayde Fine on 02/06/25 16:53 Assessment & Plan Assessment & Plan Orders: Orders AMB Urinalysis Automated Today Z13.9 - Encounter for screening, unspecified Medications: New bicalutamide (Casodex) pt to take one tab twice daily 50 mg PO DAILY 90 tabs 1RF Coding
--- OUTSIDE RECORDS SUMMARY | 2025-02-06 16:01 | XMS_ITS | Clinical Summary ---
Author Organization [facility] Address [address] [place] [address] Phone Care Team Providers Care Company Manager Name Role Phone Unavailable Primary Care Provider Unavailabl e Encounters Date Type Department Care Team Description 01/17/2025 1:47 PM EDT - 01/17/2025 11:59 PM EDT Hospital Encounter [facility] PET Scan [address] [place] [address] Malignant neoplasm of prostate (CMS/HCC V24, CMS/HCC V28) Discharge Disposition: Home or Self Care from Last 3 Months Social History Tobacco Use Types Packs/Day Years Used Date Smoking Tobacco: Never Assessed Sex and Gender Information Value Date Recorded Sex Assigned at Not on file Legal Sex Male 6:29 AM EST Gender Identity Not on file Sexual Orientation Not on file Plan of Treatment Health Maintenance Due Date Last Done Comments Pneumococcal Vaccine: 50+ Years (1 of 2 - PCV) 1964 Zoster Vaccines (1 of 2) 1964 COVID-19 Vaccine (3 - Modern a risk series) 08/13/2021 07/16/2021, 06/08/2021 RSV Immunization Adult Patients (1 - 1-dose 75+ series) 2022 Cholesterol Screening (Lipid Panel) 01/16/2025 Depression Screening 01/16/2025 Falls Risk Assessment 01/16/2025 Hepatitis C Screening 01/16/2025 Social Influencers of Health Screening 01/16/2025 Influenza Vaccine (Season Ended) 2025 07/27/2023 DTaP,Tdap,and Td Vaccines (2 - Td or Tdap) 09/08/2030 09/08/2020 HIB Vaccines Aged Out No longer eligi ble based on patient's age to complete this topic HPV Vaccines Aged Out No longer eligi ble based on patient's age to complete this topic Hepatitis A Vaccines Aged Out No long er eligible based on patient's age to complete this topic Hepatitis B Vaccines Aged Out No long er eligible based on patient's age to complete this topic IPV Vaccines Aged Out No longer eligi ble based on patient's age to complete this topic MMR Vaccines Aged Out No longer eligi ble based on patient's age to complete this topic Meningococcal ACWY Vaccine Aged Out N o longer eligible based on patient's age to complete this topic Meningococcal B Vaccine Aged Out No l onger eligible based on patient's age to complete this topic RSV Immunization Patients Under 20 months Aged Out No longer eligible b ased on patient's age to complete this topic Varicella Vaccines Aged Out No longer eligible based on patient's age to complete this topic Procedures Procedure Name Priority Date/Time Associated Diagnosis Comments PET CT SKULL TO MID THIGH INITIAL Routine 01/17/2025 3:50 PM EDT Malignant neoplasm of prostate ([facility] V24, [facility] V28) from Last 3 Months Results * PET CT Skull to Mid Thigh Initial (01/17/2025 3:50 PM EDT) Anatomical Region Laterality Modality Body Radiographic Marcy ging 01/27/2025 5:18 AM EDT Impressions 01/27/2025 5:52 AM EDT 1. ??Activity within the prostate gland in keeping with biopsy-proven prostate carcinoma 2. ??Innumerable metabolically active osseous lesions in keeping with metastatic disease 3. ??Activity within abdominal and pelvic lymph nodes suspicious for metastatic disease 4. ??Nonspecific pulmonary nodules in the right lower lobe demonstrating mild activity -------- FINAL REPORT -------- Dictated By: Brynn Florez Dictated Date: 01/27/2025 05:18 ET Assigned Physician: Brynn Florez Reviewed and Electronically Signed By: Brynn Florez Signed Date: 01/27/2025 05:52 ET Workstation ID: [id number] Transcribed By: Self Edit Transcribed Date: 01/27/2025 05:18 ET Narrative 01/27/2025 5:52 AM EDT HISTORY: Prostate carcinoma, initial staging. ??History of lymphoma. PRIOR IMAGING STUDIES: Prior chest CT April 2015 RADIOPHARMACEUTICAL: 9.8 mCi F-18 piflufolastat IV INJECTION SITE: Left antecubital INJECTION TIME TO SCAN TIME: 69 min PROCEDURE: Routine body PET-CT imaging performed from the head to the upper thighs and reconstructed in axial, coronal, sagittal planes at the computer workstation with fused data from both the PET imaging study and attenuation correction CT study. Please note, CT imaging utilized strictly for attenuation correction and anatomic localization: CT not designed to produce and cannot replace kudmb-nk-byz-art true diagnostic CT examination with specific protocols. ??Standardized uptake values (SUV) normalized to patient body weight and indicate the highest active concentration (SUV max) in a given disease site. DLP: ??471 mGy-cm IMAGING FINDINGS: Reference Values SUV Max: Parotid: 10.3 Blood Pool: ??1.5 Liver: ??5.6 Expected pattern of physiological activity noted. HEAD AND NECK: No abnormal activity. ??Nonenlarged left supraclavicular lymph nodes SUV max 1.3. THORAX: Nonspecific left hilar activity SUV max 2.9. ??Nonspecific left infrahilar activity SUV max 4.2. 6 mm pulmonary nodule in the right lower lobe laterally SUV max 2 and 7 mm pulmonary nodule in the right lower lobe medially SUV max 0.7. ABDOMEN/PELVIS: Activity within the prostate gland SUV max 6.4. Distal left para-aortic lymph node SUV max 3.5. ??Asymmetric nonenlarged right obturator lymph node SUV max 2.5. ??Nonspecific left inguinal lymph nodes SUV max 2.2. MUSCULOSKELETAL: Innumerable metabolically active osseous lesions. ??For example, right ischial tuberosity SUV max 10.4, left symphysis pubis SUV Max 12.7, right posterior acetabulum 8.9, left sacroiliac SUV Max 8.2, right sacroiliac SUV Max 11.7, right sacrum SUV max 14.1, L5 SUV max 16.5, L4 SUV max 13.8, cervical spine SUV max 8.6, thoracic spine SUV Max 11.9. sternum SUV Max 4.3 and ribs SUV max 8.3. Procedure Note Brynn Florez MD - 01/27/2025 HISTORY: Prostate carcinoma, initial staging. History of lymphoma. PRIOR IMAGING STUDIES: Prior chest CT April 2015 RADIOPHARMACEUTICAL: 9.8 mCi F-18 piflufolastat IV INJECTION SITE: Left antecubital INJECTION TIME TO SCAN TIME: 69 min PROCEDURE: Routine body PET-CT imaging performed from the head to the upper thighsand reconstructed in axial, coronal, sagittal planes at the computerworkstation with fused data from both the PET imaging study andattenuation correction CT study. Please note, CT imaging utilized strictlyfor attenuation correction and anatomic localization: CT not designed toproduce and cannot replace ayype-fa-rsa-art true diagnostic CT examinationwith specific protocols. Standardized uptake values (SUV) normalized topatient body weight and indicate the highest active concentration (SUVmax) in a given disease site. DLP: 471 mGy-cm IMAGING FINDINGS: Reference Values SUV Max: Parotid: 10.3 Blood Pool: 1.5 Liver: 5.6 Expected pattern of physiological activity noted. HEAD AND NECK: No abnormal activity. Nonenlarged left supraclavicularlymph nodes SUV max 1.3. THORAX: Nonspecific left hilar activity SUV max 2.9. Nonspecific leftinfrahilar activity SUV max 4.2. 6 mm pulmonary nodule in the right lower lobe laterally SUV max 2 and 7 mmpulmonary nodule in the right lower lobe medially SUV max 0.7. ABDOMEN/PELVIS: Activity within the prostate gland SUV max 6.4. Distal left para-aortic lymph node SUV max 3.5. Asymmetric nonenlargedright obturator lymph node SUV max 2.5. Nonspecific left inguinal lymphnodes SUV max 2.2. MUSCULOSKELETAL: Innumerable metabolically active osseous lesions. Forexample, right ischial tuberosity SUV max 10.4, left symphysis pubis SUVMax 12.7, right posterior acetabulum 8.9, left sacroiliac SUV Max 8.2,right sacroiliac SUV Max 11.7, right sacrum SUV max 14.1, L5 SUV max 16.5,L4 SUV max 13.8, cervical spine SUV max 8.6, thoracic spine SUV Max 11.9.sternum SUV Max 4.3 and ribs SUV max 8.3. IMPRESSION: 1. Activity within the prostate gland in keeping with biopsy-provenprostate carcinoma 2. Innumerable metabolically active osseous lesions in keeping withmetastatic disease 3. Activity within abdominal and pelvic lymph nodes suspicious formetastatic disease 4. Nonspecific pulmonary nodules in the right lower lobe demonstratingmild activity -------- FINAL REPORT -------- Dictated By: Brynn Florez Dictated Date: 01/27/2025 05:18 ET Assigned Physician: Brynn Florez Reviewed and Electronically Signed By: Brynn Florez Signed Date: 01/27/2025 05:52 ET Workstation ID: [id number] Transcribed By: Self Edit Transcribed Date: 01/27/2025 05:18 ET Erickson Mcarthur MD IMG NM PROCEDURES Final Result from Last 3 Months Insurance MEDICARE [facility]
--- OUTSIDE RECORDS SUMMARY | 2025-02-06 16:01 | XMS_ITS | Continuity of Care Document ---
Author Organization [facility] Address [address] [place] [id number] Care Team Providers Care Pickling Grader Name Role Phone Heather Melendez MD Primary Care Physician Encounter [facility] Date(s): 01/01/25 - 01/31/25 [facility] [address] [place] [id number] Attending Physician: Fanny Clay Admitting Physician: Fanny Clay Referring Physician: Fanny Clay Encounter Type: Triage Allergies, Adverse Reactions, Alerts No Known Medication Allergies Social History Social History Type Response Smoking Status Former smoker entered on: 08/11/16 Sex Sex Representation Male (finding) Patient Care team information Care Team Personnel Name: Heather Melendez MD Position: Reference Physician Member Role: PCP Address: [address] [place] [address], [facility] [address] [place], [place] [address] Telecom: Care Team Related Persons Name: VICENTE VICENTE Insurance Providers Guarantor name: ELVIS PAULKRISTA Health Plan Information #: 1 Payer: [employer] Member Number: NA Policy Number: NA Group Number: NA
== END 2025-02-06 16:29 | disposition home or self-care (01) ==
LOC: HO.HUSH 15:26
PROVIDERS: PCP Internal Medicine; Visit Provider Urology
DX: Z13.9 Encounter for screening, unspecified (principal)

== ENCOUNTER → 2025-02-06 15:25 | Outpatient (BNVA) | payer BC, SELFPAY | PROVIDERS: PCP Internal Medicine; Visit Provider Urology | DX: C61 Malignant neoplasm of prostate (principal) | CPT/HCPCS: 81003 ==

== ENCOUNTER 2025-02-27 14:08 | Outpatient (AMB) | payer BC, SELFPAY ==
--- OUTSIDE RECORDS SUMMARY | 2025-02-27 14:20 | XMS_ITS | Clinical Summary ---
Author Organization [facility] Address [address] [place] [address] Phone Care Team Providers Care Superintendent Overhead Distribution Name Role Phone Unavailable Primary Care Provider Unavailabl e Encounters Date Type Department Care Team Description 01/17/2025 1:47 PM EDT - 01/17/2025 11:59 PM EDT Hospital Encounter [facility] PET Scan [address] [place] [address] Malignant neoplasm of prostate (CMS/HCC [...] 3:50 PM EDT Malignant neoplasm of prostate ([facility] V24, [facility] V28) from Last 3 Months Results * [...] Signed Date: 01/27/2025 05:52 ET Workstation ID: [id number] Transcribed By: Self Edit Transcribed Date: 01/27/2025 [...] not designed to produce and cannot replace ueqnv-xy-ady-art true diagnostic CT examination with specific protocols. [...] CT not designed toproduce and cannot replace mrmcn-do-xrm-art true diagnostic CT examinationwith specific protocols. Standardized [...] Signed Date: 01/27/2025 05:52 ET Workstation ID: [id number] Transcribed By: Self Edit Transcribed Date: 01/27/2025 05:18 ET Erickson Mcarthur MD IMG NM PROCEDURES Final Result from Last 3 Months Insurance MEDICARE [facility]
--- NOTE | 2025-02-27 14:25 | A.OFFPC_ITS ---
Vital Signs 02/27/25 14:27 Height 5 ft 8 in Weight 163 lb 4 oz BMI 24.8 BP 140/62 H Blood Pressure Location Lt brachial Position Sitting Pulse 64 Pulse Source Pulse Oximeter Temp 97.3 F Temp Source Temporal Artery Scan Pulse Oximetry (%) 99 Oxygen Delivery Method Room Air Intake Visit Reasons: 6mth f/u Intake Note: Patient is here to follow up on HTN, Hypercholesterolemia. Social Economist Required: No Plate Mill Mill Hand: Not Required per policy Accompanied by: Self / Same As Patient Allergies No Known Allergies [NO KNOWN ALLERGIES] Allergy (Intermediate, Verified 02/27/25 14:26) UNKNOWN Tobacco use date assessed: 02/27/25 Fall risk assessment: No Falls in past year Last assessed Fall Risk: 02/27/25 Dental Screening Dental Screen Date: 02/27/25 Did you have a dental visit in the last 12 months?: Yes Did you have a dental problem in the last 6 months where you did not have access to dental care?: No Was dental information given to patient?: Patient has dentist [facility] Medical History Benign essential HTN Surgical History (Updated 02/27/25 @ 14:41 by FREDO Singh) History of prostate biopsy History of colonoscopy (~07/18/22) History of subdural hematoma Family History Father No problems noted. Mother No problems noted. Social History Housing: House Alcohol intake: current Alcohol intake frequency: a few times a week Alcohol type: wine Patient Tobacco Use Status: Never used Tobacco e-Cigarette/Vaping Use: Never Used Second Hand Smoke Exposure: No service: Yes Current occupational status: retired Cognitive needs: No Hearing needs: No Vision needs: Yes (Glasses) Questionnaire PHQ-9 Over the last 2 weeks, how often have you been bothered by any of the following problems? 1. Little interest or pleasure in doing things: not at all 2. Feeling down, depressed, or hopeless: not at all 3. Trouble falling or staying asleep, or sleeping too much: not at all 4. Feeling tired or having little energy: not at all 5. Poor appetite or overeating: not at all 6. Feeling bad about yourself - or that you are a failure or have let yourself or your family down: not at all 7. Trouble concentrating on things, such as reading the newspaper or watching television: not at all 8. Moving or speaking so slowly that other people could have noticed. Or the opposite - being so fidgety or restless that you have been moving around a lot more than usual: not at all 9. Thoughts that you would be better off or of hurting yourself in some way: not at all Total score: 0 Depression Screening Interpretation: Negative Depression Screening Done: Yes Source: Developed by Drs. Fredy Shi, Arlette Corbin, Carlitos Howard and colleagues, with an educational emery from [employer]. Thrive Questionnaire Date Thrive assessed: 02/20/25 I am a: Patient What is your living situation today?: I have a steady place to live Within the past 12 months, did the food you bought not last and you didn't have the money to get more?: Never true Within the past 12 months, did you worry whether your food would run out before you got money to buy more?: Never true Do you have trouble paying for medicines?: No Do you have trouble getting transportation to medical appointments?: No Do you have trouble paying your heating and electricity bill?: No Do you have trouble taking care of your child, family member or friend?: No Do you have trouble with day-to-day activities such as bathing, preparing meals, shopping, managing finances, etc.?: No Are you currently unemployed and looking for a job?: No Are you interested in more education?: No Currently or been in a relationship where the following occur: No concerns reported THRIVE Score: 0 AUDIT C Alcohol Use Questionnaire (AUDIT-C) 1. How often do you have a drink containing alcohol?: 2-3 times a week 2. How many drinks containing alcohol do you have on a typical day when you are drinking?: 1 or 2 3. How often do you have six or more drinks on one occasion?: Never Total Score: 3 GINETTE-7 AMB Questionnaire GINETTE-7 Date GINETTE - 7 assessed: 02/27/25 Feeling nervous, anxious, or on edge: 0 = Not at all Not being able to stop or control worryin = Not at all Worrying too much about different things: 0 = Not at all Trouble relaxin = Not at all Being so restless that it is hard to sit still: 0 = Not at all Becoming easily annoyed or irritable: 0 = Not at all Feeling afraid as if something awful might happen: 0 = Not at all Total GINETTE-7 score (0-4 normal; 5-9 mild; 10-14 moderate; 15-21 severe): 0 Source: Developed by Drs. Fredy Shi, Arlette Corbin, Carlitos Howard and colleagues, with an educational emery from [employer]. Physical exam (Primary Care) Vital Signs: Last Vital Signs Temp 97.3 F 02/27/25 14:27 Pulse 64 02/27/25 14:27 BP 140/62 H 02/27/25 14:27 Pulse Ox 99 02/27/25 14:27 Oxygen Delivery Method Room Air 02/27/25 14:27 BMI result Body Mass Index 24.8 Tobacco/Smoking Status: Tobacco use Status Tobacco use date assessed 02/27/25 02/27/25 14:42 Patient Tobacco Use Status Never used Tobacco 02/27/25 14:42 e-Cigarette/Vaping Use Never Used 02/27/25 14:42 PHQ-9: PHQ-9 Score PHQ-9: Total score 0 02/27/25 14:42 Depression Screening Interpretation: Negative Thrive Assessment: Date of Thrive Assessment Date Thrive assessed 02/20/25 02/27/25 14:42 Currently or been in a relationship where the following occur: No concerns reported Coding Level of Care Code Est Pt Level 4 (13810) Complex EM visit Add On G2211 Diagnoses 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 - The pain, described as a pinch, occurs intermittently with certain movements, notably when standing. - Episodes have increased from once every four to five months to daily occurrences, associated with a popping sensation and severe pain. - Previously managed with heat therapy; recent episodes are more frequent. - History of hypertension and hyperlipidemia; current management includes medications. - Significant weight loss noted due to Zepbound injections, with ongoing management of obesity. Social History - Employed at [employer], working in a recovery room. - Reports significant weight loss following enrollment in a weight management program. - Participates in [employer], resulting in a loss of approximately 45 to 48 pounds. - Current medication for weight management is Zepbound, administered weekly. Review of Systems - Musculoskeletal: Reports episodic low back pain with specific movements. Denies continuous pain. - Medication Use: Denies current use of opioids and buprenorphine. - General: Reports significant weight loss with medication-assisted weight management. Physical Exam General: Cooperative and healthy appearing Nutritional Appearance: Well nourished Orientation/consciousness: Patient oriented x3 Limitations: No limitations Head: Normal to inspection General: Appearance normal, both eyes and all related structures Neck: Normal visual inspection Chest: Normal palpation of entire chest wall Respiratory: N ormal respiratory effort Neurology: Patient oriented x3, discomfort on the right internal rotator, external rotation of the hip. Results Plan 1. Mechanical Low Back Pain - Use heating pad and start physical therapy for muscle tightness. 2. Hypertension - Maintain current medication regimen and monitor blood pressure. 3. Hyperlipidemia - Continue current medications and dietary adherence. 4. Obesity - Continue Zepbound injections for weight management. - Conduct blood work to assess progress. Discussion Notes I discussed the patient's mechanical low back pain and the increased frequency of episodes. We agreed on initiating physical therapy to address muscle tightness and improve mobility. The patient is advised to continue using a heating pad as it has been effective in the past. We reviewed his current natasha gement of hypertension and hyperlipidemia, emphasizing the importance of medication adherence. The patient is on Zepbound for weight management, which has been effective, and we plan to conduct blood work to evaluate the impact of weight loss and medication. A follow-up appointment is scheduled in six months, with instructions to complete blood work prior to the visit. Patient Instructions - Use a heating pad for back pain as needed. - Start physical therapy as prescribed. - Continue taking medications for blood pressure and cholesterol. - Keep using Zepbound for weight management. - Get blood work done before the next visit. - Schedule a follow-up appointment in six months. Orders: Orders Thyroid Stimulating Hormone 02/27/25 C61 - Malignant neoplasm of prostate UA and rflx microscopic 02/27/25 C61 - Malignant neoplasm of prostate Basic Metabolic Panel 02/27/25 C61 - Malignant neoplasm of prostate Complete Blood Count no Diff 02/27/25 C61 - Malignant neoplasm of prostate Liver Panel 02/27/25 C61 - Malignant neoplasm of prostate Lipid Panel 02/27/25 C61 - Malignant neoplasm of prostate
[2025-02-27 14:27] VITALS: BP 140/62; PULSE 64; TEMP 36.3; O2SAT 99; BMI 24.8
== END 2025-02-27 14:56 | disposition home or self-care (01) ==
LOC: HO.HMCH 14:09
PROVIDERS: PCP Internal Medicine; Visit Provider Internal Medicine
DX: C61 Malignant neoplasm of prostate (principal)

== ENCOUNTER 2025-02-27 14:08 | Outpatient (REF) | payer BC, SELFPAY ==
[2025-02-27 15:58] LABS: Hematocrit 40.3 % (42.0-52.0); Mean Corpuscular HGB Conc 32.3 g/dl (31.0-36.0); Mean Corpuscular Hemoglobin 26.9 pg (27.0-33.0); Mean Corpuscular Volume 83.3 fL (80.0-98.0); Mean Platelet Volume 9.2 fL (9.4-12.4); Platelet Count 271 X10*3/uL (160-400); Red Blood Count 4.84 X10*6/uL (4.60-5.80); White Blood Count 4.8 X10*3/uL (4.8-10.8)
[2025-02-27 16:10] LABS: Appearance Urine Clear; Color Urine Yellow; Glucose Urine UA Negative (Negative); Leukocyte Esterase Urine Negative (Negative); Nitrite Urine Negative (Negative); PH 5.5 (5.0-9.0); Urine Blood Negative (Negative); Urine Ketones Negative (Negative); Urine Protein Trace mg/dL (Neg-Trace)
[2025-02-27 16:46] LABS: Prostate Specific Antigen 33.18 ng/mL (<0.05-4.0)
[2025-02-27 17:04] LABS: Alanine Aminotransferase 37 U/L (0-40); Albumin Level 4.6 g/dL (3.5-5.0); Alkaline Phosphatase 481 U/L (39-117); Anion Gap 12 (12-20); Aspartate Amino Transferase 26 U/L (5-37); Bilirubin Direct 0.3 mg/dL (0.0-0.5); Bilirubin Total 1.2 mg/dL (0.0-1.0); Blood Urea Nitrogen 15 mg/dL (9-16); Calcium 9.3 mg/dL (8.4-10.2); Carbon Dioxide 27 mmol/L (22-29); Chloride 108 mmol/L (96-108); Cholesterol 215 mg/dL (<200); Estimated Glomerular Filt Rate > 60; Glucose Random 81 mg/dL (60-115); HDL Cholesterol 45 mg/dL (>40); LDL Cholesterol Calculated 157 mg/dL (<100); Potassium 4.6 mmol/L (3.3-5.1); Sodium 142 mmol/L (135-145); Triglycerides 69 mg/dL (<150)
[2025-02-27 17:19] LABS: Thyroid Stimulating Hormone 1.41 uIU/mL (0.32-4.0)
== END 2025-02-27 14:09 | disposition home or self-care (01) ==
LOC: HO.LAB 14:08
PROVIDERS: Urology; PCP Internal Medicine; Visit Provider Internal Medicine
DX: C61 Malignant neoplasm of prostate (principal); R97.20 Elevated prostate specific antigen [PSA]; Z12.5 Encounter for screening for malignant neoplasm of prostate; Z13.6 Encounter for screening for cardiovascular disorders
CPT/HCPCS: 36415; 80048; 80061; 80076; 81003; 84153; 84443; 85027

== ENCOUNTER 2025-05-29 11:33 | Outpatient (AMB) | payer BC, SELFPAY ==
--- NOTE | 2025-05-29 11:43 | MHC.PC.OV ---
Vital Signs 05/29/25 11:44 Height 5 ft 8 in Weight 161 lb 6 oz BMI 24.5 BP 130/80 Blood Pressure Location Lt brachial Position Sitting Pulse 57 Pulse Source Pulse Oximeter Temp 97.1 F Temp Source Temporal Artery Scan Pulse Oximetry (%) 98 Oxygen Delivery Method Room Air Intake Visit Reasons: 04/23 [facility] Heart attack Intake Note: Patient is here for hospital discharge follow up. Patient was discharged from [facility] on 03/25/25. Disassembler Product Required: No Chili Powder Mixer: Not Required per policy Accompanied by: Self / Same As Patient Allergies No Known Allergies (NO KNOWN ALLERGIES) Allergy (Intermediate, Verified 05/29/25 11:44) UNKNOWN Tobacco use date assessed: 05/29/25 Fall risk assessment: No Falls in past year Last assessed Fall Risk: 05/29/25 Dental Screening Dental Screen Date: 02/27/25 [facility] Medical History (Updated 05/31/25 @ 11:48 by Kiran Lugo MD) Coronary artery disease Benign essential HTN Surgical History (Updated 05/29/25 @ 11:57 by FREDO Singh) History of coronary artery stent placement History of prostate biopsy History of colonoscopy (~07/18/22) History of subdural hematoma Family History Father No problems noted. Mother No problems noted. Social History Housing: House Alcohol intake: current Alcohol intake frequency: a few times a week Alcohol type: wine Patient Tobacco Use Status: Never used Tobacco e-Cigarette/Vaping Use: Never Used Second Hand Smoke Exposure: No service: Yes Current occupational status: retired Cognitive needs: No Hearing needs: No Vision needs: Yes (Glasses) Questionnaire PHQ-9 Over the last 2 weeks, how often have you been bothered by any of the following problems? 1. Little interest or pleasure in doing things: not at all 2. Feeling down, depressed, or hopeless: not at all 3. Trouble falling or staying asleep, or sleeping too much: not at all 4. Feeling tired or having little energy: not at all 5. Poor appetite or overeating: not at all 6. Feeling bad about yourself - or that you are a failure or have let yourself or your family down: not at all 7. Trouble concentrating on things, such as reading the newspaper or watching television: not at all 8. Moving or speaking so slowly that other people could have noticed. Or the opposite - being so fidgety or restless that you have been moving around a lot more than usual: not at all 9. Thoughts that you would be better off or of hurting yourself in some way: not at all Total score: 0 Depression Screening Interpretation: Negative Depression Screening Done: Yes Source: Developed by Drs. Fredy Shi, Carlitos Lee and colleagues, with an educational emery from [employer] Thrive Questionnaire Date Thrive assessed: 02/20/25 I am a: Patient What is your living situation today?: I have a steady place to live Within the past 12 months, did the food you bought not last and you didn't have the money to get more?: Never true Within the past 12 months, did you worry whether your food would run out before you got money to buy more?: Never true Do you have trouble paying for medicines?: No Do you have trouble getting transportation to medical appointments?: No Do you have trouble paying your heating and electricity bill?: No Do you have trouble taking care of your child, family member or friend?: No Do you have trouble with day-to-day activities such as bathing, preparing meals, shopping, managing finances, etc.?: No Are you currently unemployed and looking for a job?: No Are you interested in more education?: No Please select the resources that you would like help with: None Currently or been in a relationship where the following occur: No concerns reported THRIVE Score: 0 GINETTE-7 AMB Questionnaire GINETTE-7 Date GINETTE - 7 assessed: 02/27/25 Source: Developed by Drs. Fredy Shi, Arlette Corbin, Carlitos Howard and colleagues, with an educational emery from [employer] Physical exam (Primary Care) Vital Signs: Last Vital Signs Temp 97.1 F 05/29/25 11:44 Pulse 57 05/29/25 11:44 BP 130/80 05/29/25 11:44 Pulse Ox 98 05/29/25 11:44 Oxygen Delivery Method Room Air 05/29/25 11:44 BMI result Body Mass Index 24.5 Tobacco/Smoking Status: Tobacco use Status Tobacco use date assessed 05/29/25 05/29/25 11:44 Patient Tobacco Use Status Never used Tobacco 05/29/25 11:44 e-Cigarette/Vaping Use Never Used 05/29/25 11:44 PHQ-9: PHQ-9 Score PHQ-9: Total score 0 05/29/25 11:44 Depression Screening Interpretation: Negative Thrive Assessment: Date of Thrive Assessment Date Thrive assessed 02/20/25 05/29/25 11:44 Currently or been in a relationship where the following occur: No concerns reported Coding Level of Care Code Est Pt Level 3 (99783) Complex EM visit Add On G2211 Diagnoses Coronary artery disease I25.10 Assessment & Plan Assessment & Plan (1) Coronary artery disease: Code(s): I25.10 - Atherosclerotic heart disease of huslia coronary artery without angina pectoris Category: Medical Plan: History of Present Illness - The patient is a 79-year-old male presenting for follow-up after stent placement. - Coronary artery disease: The patient had a stent placed on March 22 and reports tolerating the procedure well. - Medication adherence: The patient confirms taking all prescribed medications. - Follow-up care: The patient attends [facility] every three months for ongoing monitoring. Social History Review of Systems Physical Exam General: Cooperative and healthy appearing Nutritional Appearance: Well nourished Orientation/consciousness: Patient oriented x3 Limitations: No limitations Head: Normal to inspection General: Appearance normal, both eyes and all related structures Neck: Normal visual inspection Chest: Normal palpation of entire chest wall Respiratory: Normal respiratory effort Neurology: Patient oriented x3 Results Plan 1. Coronary Artery Disease With Stent Placement - Continue current medication regimen as tolerated. - Regular follow-up at [facility] every three months for monitoring. Discussion Notes Patient Instructions
[2025-05-29 11:44] VITALS: BP 130/80; PULSE 57; TEMP 36.2; O2SAT 98; BMI 24.5
--- OUTSIDE RECORDS SUMMARY | 2025-05-29 12:49 | XMS_ITS | Clinical Summary ---
Author Organization [facility] Address [address] [place] [address] Phone Care Team Providers Care Cloth Cutting Inspector Name Role Phone Kiran Lugo MD Primary Care Provider [phone] Social History Tobacco Use Types Packs/Day Years Used Date Smoking Tobacco: Never Assessed Sex and Gender Information Value Date Recorded Sex Assigned at Not on file Legal Sex Male 6:29 AM EST Gender Identity Not on file Sexual Orientation Not on file Plan of Treatment Health Maintenance Due Date Last Done Comments Pneumococcal Vaccine: 50+ Years (1 of 1 - PCV) 1997 Zoster Vaccines (1 of 2) 1997 RSV Immunization Adult Patients (1 - 1-dose 75+ series) 2022 COVID-19 Vaccine (3 - 2023-2 5 season) 2024 07/16/2021, 06/08/2021 Depression Screening 10/02/2024 Cholesterol Screening (Lipid Panel) 01/16/2025 Falls Risk Assessment 01/16/2025 Hepatitis C Screening 01/16/2025 Social Influencers of Health Screening 01/16/2025 Hypertension/CHF/CAD Annual BMP Blood Test 04/12/2025 Influenza Vaccine (#1) 2025 07/27/2023 DTaP,Tdap,and Td Vaccines (2 - [...] on patient's age to complete this topic Insurance MEDICARE [facility] Care Teams Cloth Cutting Inspector Relationship Specialty Start Date End Date Kiran Lugo MD [address] [place] [phone] PCP - General Internal Medicine 03/26/25
--- OUTSIDE RECORDS SUMMARY | 2025-05-29 12:49 | XMS_ITS ---
Author Organization [facility] Address [address] [place] [id number] Phone Care Team Providers Care Wafer Batter Mixer Name Role Phone Kiran Lugo MD Primary Care Provid er Antonia Mcbride RN Unavailable [email or web address] Problems Problem Noted Date Diagnosed Date Malignant neoplasm of prostate 03/07/2025 Current Treatment and Therapy Plans DAROLUTAMIDE* Plan Start Date:03/07/2025 Plan Provider:Jose Wagoner MD Linked Problems Malignant neoplasm of prosta te Treatment Medications Current Day (Day 1 , Cycle 2 - Planned for 04/04/2025) Next Day (Day 1, Cycle 3 - Planned for 05/02/2025) darolutamide (NUBEQA) darolutamide (CHYNA QA) 300 mg tablet darolutamide (NUBEQA) 300 mg tablet LEUPROLIDE ACETATE 3 MONTH (LUPRON DEPOT 3 MONTH)* Plan Start Date:03/07/2025 Plan Provider:Jose Wagoner MD Linked Problems Malignant neoplasm of prosta te Treatment Medications leuprolide (3 month) (LUPRON DEPOT 3 MONTH) Past Treatment and Therapy Plans No past plan information found.
--- OUTSIDE RECORDS SUMMARY | 2025-05-29 12:50 | XMS_ITS | Clinical Summary ---
Author Organization [facility] Address [address] [facility] [address] [place] [phone] Phone Care Team Providers Care Itinerant Teacher Assistant Name Role Phone Kiran Lugo MD Primary Care Provid er Antonia Mcbride RN Unavailable [email or web address] Allergies No known active allergies Medications atorvastatin (LIPITOR) 80 MG tablet Take 80 mg by mouth nightly at bedtime. at bedtime. 5 Active darolutamide (NUBEQA) 300 mg tabletIndicatio ns:Malignant neoplasm of prostate Take 2 tablets (600 mg total) by mouth 2 (two) times a day. Follow instructions given by provider. 120 tablet 3 5 Active lisinopril (PRINIVIL,ZESTR IL) 5 MG tablet Take 5 mg by mouth daily. Active amLODIPine (NORVASC) 5 MG tablet Take 5 mg by mouth daily. Active apixaban (ELIQUIS) 5 mg tablet Take 5 mg by mouth 2 (two) times a day. Active clopidogrel (PLAVIX) 75 mg tablet Take 75 mg by mouth daily. Active Active Problems Problem Noted Date Diagnosed Date Malignant neoplasm of prostate 03/07/2025 Encounters Date Type Department Care Team Description 04/09/2025 Telephone VIRTUAL DEPARTMENT [address] [place] [address] Yareli Lockhart PharmD Follow-up (Follow up call for Nubeqa through [facility] Specialty Pharmacy Program/) 04/01/2025 Orders Only VIRTUAL DEPARTMENT [address] [place] [address] Inez Kat [facility] 03/13/2025 Telephone VIRTUAL DEPARTMENT [address] [place] [phone] Yareli Lockhart, DebbyD Chemo Teaching (Nubeqa) 03/07/2025 3:45 PM EDT Infusion Infusion Therapy Services [place], [facility] at [address] [address] Jose Wagoner MD Desjean, Christine, RN Malignant neoplasm of prostate (Primary Dx) 03/07/2025 3:00 PM EDT Office Visit [facility], [facility] at [address] [address] Jose Wagoner MD Prostate cancer (Primary Dx); Malignant neoplasm of prostate 03/07/2025 Orders Only [facility], [facility] at [address] [address] Jose Wagoner MD Prostate cancer (Primary Dx) 03/03/2025 3:39 PM EDT - 03/03/2025 11:59 PM EDT Hospital Encounter [facility], [address] [address] Discharge Disposition: Home or Self Care 02/28/2025 Ancillary Orders [facility] IMG OUTSIDE IMG [address] [place] [address] Jose Wagoner MD from Last 3 Months Social History Tobacco Use Types Packs/Day Years Used Date Smoking Tobacco: Never Assessed Child or Family Care Answer Date Record ed Do you have problems with on e of the following making it difficult for you to work, study, or receive health care? No 02/28/2025 Education Answer Date Recorded Are you interested in more education? Not on juan f e 02/21/2025 Are you concerned about learning? Not on file 02/21/2025 No 02/21/2025 No 02/21/2025 Food Answer Date Recorded Within the past 6 months we worried whether our food would run out before we got money to buy more. Never True 02/28/2025 Within the past 6 months the food we bought just didn't last and we didn't have enough money to get more. Never True Residential Stability Answer Date Recor ded What is your housing situation today? I have bill zacarias 02/28/2025 How many times have you move d in the past 12 months? Zero (I did not move) 02/28/2025 Paying for Meds Answer Date Recorded Do you have trouble paying for medicines? No 02/28/2025 Transportation Answer Date Recorded Has the lack of transportati on kept you from medical appointments or from getting medications? No 02/28/2025 Digital Access Answer Date Recorded No 02/21/2025 No 02/21/2025 Reliable internet access at home? Not on file 02/21/2025 Device with a working camera? Not on file Sex and Gender Information Value Date Recorded Sex Assigned at Male 02/14/2025 2:35 PM EDT Legal Sex Male 2:26 PM EDT Gender Identity Male 02/14/2025 2:35 PM EDT Sexual Orientation Straight 02/14/2025 2: 35 PM EDT Last Filed Vital Signs Vital Sign Reading Time Taken Comments Blood Pressure 176/89 03/07/2025 3:05 PM EDT Pt states he is suposed to take his BP meds however he is refusing to take them as he does breathing techniques. Pulse 75 03/07/2025 3:05 PM EDT Temperature 36.6 C (97.8 F) 03/07/2025 3:05 PM EDT Respiratory Rate 18 03/07/2025 3:05 PM EDT Oxygen Saturation 100% 03/07/2025 3:0 5 PM EDT Inhaled Oxygen Concentration - - Weight 73.3 kg (161 lb 9.6 oz) 03/07/2025 3:05 PM EDT Height 172.2 cm (5' 7.8 ) 03/07/2025 3: 05 PM EDT Body Mass Index 24.72 03/07/2025 3:05 PM EDT Plan of Treatment Upcoming Encounters Date Type Department Care Team (Late st Contact Info) Description 06/13/2025 1:00 PM EDT Blood Draw Laboratory Services, [facility] at [address] [address] Jose Wagoner MD [address] [place] [phone] [email or web address] 06/13/2025 2:00 PM EDT Office Visit [facility], [facility] at [address] [address] Jose Wagoner MD [address] [place] [phone] martha@ [email or web address] 06/13/2025 2:45 PM EDT Infusion Infusion Therapy Services [facility] at [address] [address] Jose Wagoner MD [address] [place] [phone] [email or web address] Antonia Mcbride, RN [address] [place] [address] [email or web address] Health Maintenance Due Date Last Done Comments LIPID PANEL 1947 DEPRESSION SCREENING 1959 SMOKING Hx and SMOKELESS TOBACCO SCREENING 1960 HEPATITIS C SCREENING 1965 PNEUMOCOCCAL VACCINES (50+ years) (1 of 2 - PCV) 1966 ZOSTER VACCINES (1 of 2) 1966 RSV VACCINE (1 - 1-dose 75+ series) 2022 COVID-19 VACCINE (3 - 2023-2 5 season) 2024 07/16/2021, 06/08/2021 INFLUENZA VACCINE (#1) 2025 07/27/2023 CREATININE LEVEL 03/07/2026 03/07/2025 POTASSIUM LEVEL 03/07/2026 03/07/2025 Adult Td,Tdap Booster 09/08/2030 09/08/2020 HEPATITIS A VACCINES Aged Out No long er eligible based on patient's age to complete this topic HIB VACCINES Aged Out No longer eligi ble based on patient's age to complete this topic MENINGOCOCCAL VACCINES (ACWY) Aged Out No longer eligible based on patient's age to complete this topic MENINGOCOCCAL VACCINES (B) Aged Out N o longer eligible based on patient's age to complete this topic Medical Devices Not on file Procedures Procedure Name Priority Date/Time Associated Diagnosis Comments OUTSIDE LAB 04/10/2025 HC BLOOD COUNT COMPLETE AUTO&AUTO DIFRNTL WBC Routine 03/07/2025 3:56 PM EDT Prostate cancer COMPREHENSIVE METABOLIC PANEL Routine 03/07/2025 3:56 PM EDT Prostate cancer TESTOSTERONE, TOTAL Routine 03/07/2025 3 :56 PM EDT Prostate cancer PSA DIAGNOSTIC (MONITORING) Routine 03/07/2025 3:56 PM EDT Prostate cancer from Last 3 Months Results * Outside Lab (04/10/2025) us Scanning Interface Provider LAB BLOOD ORDERABLES Final Result * (ABNORMAL) Comprehensive metabolic panel (03/07/2025 3:56 PM EDT) SODIUM 137 136 - 145 mmol/L [facility]# [id number] POTASSIUM 4.4 3.4 - 5.1 mmol/L [facility]# [id number] CHLORIDE 105 98 - 107 mmol/L [facility]# [id number] CO2 20(L) 22 - 31 mmol/L [facility]# [id number] BUN 18 6 - 23 mg/dL [facility]# [id number] CREATININE 0.92 0.50 - 1.20 mg/dL [facility]# [id number] GLUCOSE 142(H) 70 - 100 mg/dL [facility]# [id number] ALBUMIN 4.5 3.5 - 5.2 g/dL [facility]# [id number] TOTAL PROTEIN 7.0 6.4 - 8.3 g/dL [facility]# [id number] CALCIUM 9.0 8.8 - 10.7 mg/dL [facility]# [id number] ALKALINE PHOSPHATASE 606(H) 40 - 129 U/L [facility]# [id number] TOTAL BILIRUBIN 1.1 0.2 - 1.2 mg/dL [facility]# [id number] AST 17 <41 U/L [facility]# [id number] ALT 20 <42 U/L [facility]# [id number] GLOBULIN 2.5 2.3 - 4.2 g/dL [facility]# [id number] EGFR 86 >59 mL/min/1.7 3m2 [facility]# [id number] Comment:Estimated glomerular filtration rate calculated using the CKD-EPI refit equation. ANION GAP 12 7 - 17 mmol/L [facility]# [id number] Blood 03/07/2025 3:56 PM EDT 03/07/2025 3:58 PM EDT us Jose Luna MD LAB BLOOD ORDERABLES Fin al Result [facility]# [id number] [address] [place] [address], [facility] * (ABNORMAL) PSA diagnostic (monitoring) (03/07/2025 3:56 PM EDT) PSA Monitoring 17.74(H) 0.00 - 4.00 ng/mL [facility]# [id number] Blood 03/07/2025 3:56 PM EDT 03/07/2025 3:58 PM EDT us Jose Luna MD LAB BLOOD ORDERABLES Fin al Result [facility]# [id number] [address] [place] [address], [facility] * (ABNORMAL) CBC and differential (03/07/2025 3:56 PM EDT) [facility] WBC 5.66 4.00 - 10.00 K/uL [facility]# [id number] RBC 4.77 4.50 - 6.40 M/uL [facility]# [id number] HGB 13.1(L) 13.5 - 18.0 g/dL [facility]# [id number] HCT 39.0(L) 40.0 - 54.0 % [facility]# [id number] PLT 275 150 - 450 K/uL [facility]# [id number] MCV 81.8 80.0 - 100.0 fL [facility]# [id number] MCH 27.5 27.0 - 32.0 pg [facility]# [id number] MCHC 33.6 32.0 - 36.0 g/dL [facility]# [id number] RDW 14.6(H) 11.5 - 14.5 % [facility]# [id number] MPV 9.0 8.4 - 12.0 fL [facility]# [id number] NRBC 0.00 0.00 /100 WBCs [facility]# [id number] ABSOLUTE NRBC 0.00 0 K/uL [facility] LIC# [id number] DIFF [employer] [facility] LIC# [id number] NEUTS 73.9 48.0 - 76.0 % [facility]# [id number] LYMPHS 14.1(L) 18.0 - 41.0 % [facility]# [id number] MONOS 9.5 4.0 - 11.0 % [facility]# [id number] EOS 1.6 0.0 - 5.0 % [facility]# [id number] BASOS 0.7 0.00 - 1.50 % [facility]# [id number] % IMMATURE GRANS 0.2 0.00 - 1.00 % [facility]# [id number] ABSOLUTE NEUTS 4.18 1.92 - 7.60 K/uL [facility]# [id number] ABSOLUTE LYMPHS 0.80 0.72 - 4.10 K/uL [facility]# [id number] ABSOLUTE MONOS 0.54 0.16 - 1.10 K/uL [facility]# [id number] ABSOLUTE EOS 0.09 0.00 - 0.50 K/uL [facility]# [id number] ABSOLUTE BASOS 0.04 0.00 - 0.15 K/uL [facility]# [id number] ABS IMMATURE GRANS 0.01 0.00 - 0.10 K/uL [facility]# [id number] Blood 03/07/2025 3:56 PM EDT 03/07/2025 3:58 PM EDT us Jose Luna MD LAB BLOOD ORDERABLES Fin al Result [facility]# [id number] [address] [place] [address], [facility] * Testosterone, total (03/07/2025 3:56 PM EDT) TESTOSTERONE 733 193 - 740 ng/dL [facility]# [id number] Blood 03/07/2025 3:56 PM EDT 03/07/2025 3:58 PM EDT us Jose Luna MD LAB BLOOD ORDERABLES Fin al Result [facility]# [id number] [address] [place] [address], [facility] from Last 3 Months Insurance MEDICARE A [facility] MEDICARE [facility] MEDIC[facility] MEDICARE A [facility] Care Teams Itinerant Teacher Assistant Relationship Specialty Start Date End Date Kiran Lugo MD [address] [place] [phone] PCP - General Internal Medicine 02/14/25 Antonia Mcbride RN [address] [place] [phone] [email or web address] Primary Infusion Nurse 03/07/25 Additional Source Comments The information contained in this document represents components of the legal health record. It is not the complete legal health record.[facility]
== END 2025-05-29 12:08 | disposition home or self-care (01) ==
LOC: HO.HMCH 11:33
PROVIDERS: PCP Internal Medicine; Visit Provider Internal Medicine
DX: I25.10 Atherosclerotic heart disease of native coronary artery without angina pectoris (principal)

== ENCOUNTER 2025-08-15 13:04 | Outpatient (REF) | payer MEDICARE, BC, SELFPAY ==
--- NOTE | ~2025-08-15 | MM_ITS ---
EXAMINATION: DUAL X-RAY ABSORPTIOMETRY (DXA) FOR BONE MINERAL DENSITY. CLINICAL INDICATION: Prostate cancer. For baseline BMD TECHNIQUE: An axial (e.g., hips, spine) and/or appendicular (e.g., radius) exam was performed, as appropriate, using [employer]ie[employer]elt densitometer. Images are obtained for bone mineral density measurement and are not obtained for diagnostic purposes. [id number] COMPARISON: None. FINDINGS: Scan quality: Good. LUMBAR SPINE (L1-L4): BMD (in g/cm*2): 1.998. T-score: 6.5. Z-score: 7.3. LEFT FEMORAL NECK: BMD (in g/cm*2): 1.070. T-score: 0.0. Z-score: 0.6. LEFT TOTAL HIP: BMD (in g/cm*2): 1.114. T-score: 0.1. Z-score: 1.2. FRAX 10-YEAR PROBABILITY OF FRACTURE: 10-year fracture risk is performed using the [employer] FRAX calculator based on patient-reported risk factors. Major osteoporotic fracture: None Hip fracture: None. MM/XR DEXA axial skeleton IMPRESSION: Normal based on BMD. World Health Organization criteria for BMD impression classify patients as: - Normal (T-score at or above -1.0). - Osteopenia (T-score between -1.0 and -2.5). - Osteoporosis (T-score at or below -2.5). Per the Bone Health and Osteoporosis Foundation the FRAX tool is most useful in patients with low femoral neck bone mineral density (osteopenia). FRAX is calculated per request. RECOMMENDATIONS: 1. All patients should optimize their calcium and vitamin D intake. 2. Consider FDA-approved medical therapies in postmenopausal women and men aged 50 years and older, based on the following: - A hip or vertebral (clinical or morphometric) fracture. - T-score less than or equal to -2.5 at the femoral neck or spine after appropriate evaluation to exclude secondary causes. - Low bone density (T-score between -1.0 and -2.5 at the femoral neck or spine) and a 10-year probability of a hip fracture greater than or equal to 3% or a 10-year probability of a major osteoporosis-related fracture greater than or equal to 20% based on FRAX calculation. - Clinician judgment and/or patient preferences may indicate treatment for people with 10-year fracture probabilities above or below these levels. - Further guidance on treatment can be found at the National Osteoporosis Foundation's website bonesource.org. 3. Patients with diagnosis of osteoporosis or at high risk for fracture should have regular bone mineral density tests. For patients eligible for Medicare, routine testing is allowed once every 2 years. The testing frequency can be increased to one year for patients who have rapidly progressing disease, those who are receiving or discontinuing medical therapy to restore bone mass or have additional risk factors. Electronically signed by: Jordan Shepard MD 08/18/2025 09:42 AM FERMIN
== END 2025-08-15 13:05 | disposition home or self-care (01) ==
LOC: HO.MAMMO 13:04
PROVIDERS: PCP Internal Medicine; Visit Provider Student in an Organized Health Care Education/Training Program
DX: Z13.820 Encounter for screening for osteoporosis (principal); C61 Malignant neoplasm of prostate
CPT/HCPCS: 77080

== ENCOUNTER → 2025-08-15 13:30 | Outpatient (BNV) | payer MEDICARE, BC, SELFPAY | PROVIDERS: PCP Internal Medicine; Visit Provider Radiology Diagnostic Radiology | DX: C61 Malignant neoplasm of prostate (principal) | CPT/HCPCS: 77080 ==